=== PATIENT | male | born 1965 | race Caucasian/White ===

== ENCOUNTER 2018-11-27 02:28 | Emergency (ER) | payer SELFPAY ==
[~2018-11-27] VITALS: Ht 175.3 cm; Wt 59.0 kg
[2018-11-27 02:52] LABS: BASO # 0.1 x10^3/uL (0.0-0.2); BASO % 1 % (0-3); EOS # 0.4 x10^3/uL (0.0-0.7); EOS % 6 % (0-3); HEMATOCRIT 43.9 % (39.0-53.0); HEMOGLOBIN 14.9 g/dL (13.0-17.5); LYMPH # 1.8 x10^3/uL (1.0-4.8); LYMPH % 30 % (24-48); MEAN CORPUSCULAR HEMOGLOBIN 34 pg (25-35); MEAN CORPUSCULAR HGB CONC 34 g/dL (31-37); MEAN CORPUSCULAR VOLUME 102 fL (79-100); MONO # 0.7 x10^3/uL (0.0-1.1); MONO % 11 % (0-9); NEUT # 3.1 x10^3uL (1.8-7.7); NEUT % 52 % (31-73); PLATELET COUNT 186 x10^3/uL (140-400); RED BLOOD COUNT 4.33 x10^6/uL (4.30-5.70); RED CELL DISTRIBUTION WIDTH 15.3 % (11.5-14.5); WHITE BLOOD COUNT 6.1 x10^3/uL (4.0-11.0)
[2018-11-27] MEDS ORDERED: MULTIVIT INFUSN,ADULT 4,VIT K 10 ML, THIAMINE INJ 100 MG, FOLIC ACID INJ 1 MG in IV NOR... IV SCH (03:00)
[2018-11-27 03:10] LABS: BILIRUBIN,URINE SMALL (NEG); CLARITY,URINE CLOUDY; NITRITE,URINE NEGATIVE (NEG); PH,URINE 5.5; PROTEIN,URINE 100 mg/dL (NEG-TRACE)
[2018-11-27 03:16] LABS: AMPHETAMINE/METHAMPHETAMINE POS (NEG); BARBITURATES NEG (NEG); BENZODIAZEPINES POS (NEG); CANNABINOIDS NEG (NEG); COCAINE NEG (NEG); METHADONE NEG (NEG); OPIATES NEG (NEG); PHENCYCLIDINE NEG (NEG)
[2018-11-27 03:23] LABS: BACTERIA,URINE 0 /HPF (0-FEW); COLOR,URINE AMBER; RBC,URINE 0 /HPF (0-2); SQUAMOUS EPITHELIAL CELL,UR FEW /LPF
[2018-11-27 03:24] LABS: AMORPHOUS SEDIMENT,UR PRESENT /HPF; GRANULAR CASTS,URINE OCCASIONAL /HPF; HYALINE CASTS, URINE MANY /HPF
[2018-11-27 03:35] LABS: CALCIUM 8.4 mg/dL (8.5-10.1); CREATININE 0.7 mg/dL (0.7-1.3); GFR 117.1; POTASSIUM 3.1 mmol/L (3.5-5.1)
[2018-11-27 03:41] LABS: ALBUMIN 3.2 g/dL (3.4-5.0); ALBUMIN/GLOBULIN RATIO 0.8 (1.0-1.7); TOTAL BILIRUBIN 0.4 mg/dL (0.2-1.0)
[2018-11-27] MEDS ORDERED: POTASSIUM CHLORIDE 20 MEQ TABLET.ER. PO ONE (04:30)
[2018-11-27 05:00] VITALS: BP 125/62
--- NOTE | 2018-11-27 05:04 | PHYS DOC ---
Past Medical History Past Medical History: Hypertension, Hepatitis, Other Additional Past Medical Histor: OSTEOARTHRITIS, CHRONIC PAIN, HEP ENCEPHALOPATHY, TBI, HEP C Past Surgical History: Other Additional Past Surgical Histo: 'NECK AND BACK SURGERY' Alcohol Use: Heavy Drug Use: None Adult General Chief Complaint Chief Complaint: COLD EXPOSURE HPI HPI Patient is a 53-year-old male who presents with complaint of bilateral hand pain. Patient was brought in by EMS after he and been found outside sleeping on the grass. Patient had gotten intoxicated and was trying to walk back to his tent where he stays and states that he got tired and laid down and went to sleep. When he woke up his hands were hurting. Patient afraid that he may gotten frostbite in his hands. He denies any chest pain or shortness breath. Patient also states that he hurts pretty much everywhere. He admits to chronic pain. Review of Systems Review of Systems Constitutional: Denies fever or chills [] Respiratory: Denies cough or shortness of breath [] Cardiovascular: No additional information not addressed in HPI [] GI: Denies abdominal pain, nausea, vomiting or diarrhea [] Musculoskeletal: [place] of bilateral hand and diffuse joint pain [] Integument: Denies rash or skin lesions [] All other systems were reviewed and found to be within normal limits, except as documented in this note. Current Medications Current Medications Current Medications Medications (Trade) Dose Ordered Sig/Dawit Start Time Stop Time Status Last Admin Dose Admin Multivitamins 10 ml/Thiamine HCl 100 mg/Folic Acid 1 mg/Sodium Chloride 1,011.2 ml @ 1,000 mls/ hr Q1H 11/27/18 03:00 11/27/18 03:00 DC 11/27/18 02:55 1,000 MLS/HR Potassium Chloride (Klor-Con) 40 meq 1X ONCE 11/27/18 04:30 11/27/18 04:32 DC 11/27/18 04:18 40 MEQ Allergies Allergies Allergies Coded Allergies Type Severity Reaction Last Updated Verified Sulfa (Sulfonamide Antibiotics) Allergy Intermediate 11/27/18 Yes Physical Exam Physical Exam Constitutional: Well developed, well nourished, no acute distress, strong smell of alcohol is noted on patient's breath. [] HENT: Normocephalic, atraumatic, bilateral external ears normal, oropharynx moist, no oral exudates, nose normal. [] Eyes: PERRLA, EOMI, conjunctiva normal, no discharge. [] Neck: Normal range of motion, no tenderness, supple, no stridor. [] Cardiovascular: Regular rate and rhythm[] Lungs & Thorax: Bilateral breath sounds clear to auscultation [] Abdomen: Bowel sounds normal, soft, no tenderness. [] Skin: Warm, dry, no erythema, no rash. [] Back: No tenderness, no CVA tenderness. [] Extremities: No cyanosis, no clubbing, ROM intact, no edema. Good capillary refill is noted to all fingers [] Neurologic: Awake and alert, no focal deficits noted. [] Current Patient Data Vital Signs Vital Signs Date Time Temp Pulse Resp B/P (MAP) Pulse Ox O2 Delivery O2 Flow Rate FiO2 11/27/18 02:30 97.8 96 18 143/86 (105) 98 Room Air 97.8 Lab Values Laboratory Tests Test 11/27/18 02:44 11/27/18 03:00 White Blood Count 6.1 x10^3/uL (4.0-11.0) Red Blood Count 4.33 x10^6/uL (4.30-5.70) Hemoglobin 14.9 g/dL (13.0-17.5) Hematocrit 43.9 % (39.0-53.0) Mean Corpuscular Volume 102 fL (79-100) H Mean Corpuscular Hemoglobin 34 pg (25-35) Mean Corpuscular Hemoglobin Concent 34 g/dL (31-37) Red Cell Distribution Width 15.3 % (11.5-14.5) H Platelet Count 186 x10^3/uL (140-400) Neutrophils (%) (Auto) 52 % (31-73) Lymphocytes (%) (Auto) 30 % (24-48) Monocytes (%) (Auto) 11 % (0-9) H Eosinophils (%) (Auto) 6 % (0-3) H Basophils (%) (Auto) 1 % (0-3) Neutrophils # (Auto) 3.1 x10^3uL (1.8-7.7) Lymphocytes # (Auto) 1.8 x10^3/uL (1.0-4.8) Monocytes # (Auto) 0.7 x10^3/uL (0.0-1.1) Eosinophils # (Auto) 0.4 x10^3/uL (0.0-0.7) Basophils # (Auto) 0.1 x10^3/uL (0.0-0.2) Sodium Level 146 mmol/L (136-145) H Potassium Level 3.1 mmol/L (3.5-5.1) L Chloride Level 106 mmol/L (98-107) Carbon Dioxide Level 30 mmol/L (21-32) Anion Gap 10 (6-14) Blood Urea Nitrogen 13 mg/dL (8-26) Creatinine 0.7 mg/dL (0.7-1.3) Estimated GFR (Cockcroft-Gault) 117.1 BUN/Creatinine Ratio 19 (6-20) Glucose Level 132 mg/dL (70-99) H Calcium Level 8.4 mg/dL (8.5-10.1) L Magnesium Level 1.9 mg/dL (1.8-2.4) Total Bilirubin 0.4 mg/dL (0.2-1.0) Aspartate Amino Transferase (AST) 165 U/L (15-37) H Alanine Aminotransferase (ALT) 67 U/L (16-63) H Alkaline Phosphatase 105 U/L (46-116) Ammonia 32 mcmol/L (11-34) Total Protein 7.0 g/dL (6.4-8.2) Albumin 3.2 g/dL (3.4-5.0) L Albumin/Globulin Ratio 0.8 (1.0-1.7) L Ethyl Alcohol Level 281 mg/dL (0-10) H Urine Collection Type Unknown Urine Color [place] Urine Clarity Cloudy Urine pH 5.5 Urine Specific [place] >=1.030 Urine Protein 100 mg/dL (NEG-TRACE) Urine Glucose (UA) Negative mg/dL (NEG) Urine Ketones (Stick) Trace mg/dL (NEG) Urine Blood Negative (NEG) Urine Nitrite Negative (NEG) Urine Bilirubin Small (NEG) Urine Urobilinogen Dipstick 1.0 mg/dL (0.2 mg/dL) Urine Leukocyte Esterase Negative (NEG) Urine RBC 0 /HPF (0-2) Urine WBC 1-4 /HPF (0-4) Urine Squamous Epithelial Cells Few /LPF Urine Amorphous Sediment Present /HPF Urine Bacteria 0 /HPF (0-FEW) Urine Hyaline Casts Many /HPF Urine Granular Casts Occasional /HPF Urine Mucus Marked /LPF Urine Opiates Screen Neg (NEG) Urine Methadone Screen Neg (NEG) Urine Barbiturates Neg (NEG) Urine Phencyclidine Screen Neg (NEG) Urine Amphetamine/Methamphetamine Pos (NEG) Urine Benzodiazepines Screen Pos (NEG) Urine Cocaine Screen Neg (NEG) Urine Cannabinoids Screen Neg (NEG) Urine Ethyl Alcohol Pos (NEG) Laboratory Tests 11/27/18 02:44 Laboratory Tests 11/27/18 02:44 EKG EKG [] Radiology/Procedures Radiology/Procedures [] Course & Med Decision Making Course & Med Decision Making Pertinent Labs and Imaging studies reviewed. (See chart for details) [] Dragon Disclaimer Dragon Disclaimer This electronic medical record was generated, in whole or in part, using a voice recognition dictation system. Departure Departure Impression: Primary Impression: Acute alcohol intoxication Additional Impression: Frostnip Disposition: 01 HOME, SELF-CARE Condition: STABLE Referrals: NO PCP (PCP) Patient Instructions: Alcohol Intoxication, Frostbite, [id number] Problem Qualifiers Primary Impression: Acute alcohol intoxication Complication of substance-induced condition: uncomplicated Qualified Codes: F10.920 - Alcohol use, unspecified with intoxication, uncomplicated Additional Impression: Frostnip Encounter type: initial encounter Qualified Codes: T33.90XA - Superficial frostbite of unspecified sites, initial encounter CHINMAY DANIEL Jr., DO Nov 27, 2018 05:04
== END 2018-11-27 06:09 | disposition home or self-care (01) ==
LOC: ER 02:28
DX: T33.522A Superficial frostbite of left hand, initial encounter (principal); T33.521A Superficial frostbite of right hand, initial encounter; T69.9XXA Effect of reduced temperature, unspecified, initial encounter; F10.229 Alcohol dependence with intoxication, unspecified; Y90.8 Blood alcohol level of 240 mg/100 ml or more; M19.90 Unspecified osteoarthritis, unspecified site; G89.29 Other chronic pain; I10 Essential (primary) hypertension; Z88.2 Allergy status to sulfonamides; X31.XXXA Exposure to excessive natural cold, initial encounter; Y93.89 Activity, other specified; Y92.89 Other specified places as the place of occurrence of the external cause; Y99.8 Other external cause status
CPT/HCPCS: 36415; 80053; 80307; 81001; 82140; 83735; 85025; 96365; 99284; G0480; J7030

== ENCOUNTER 2018-12-16 00:41 | Inpatient (IN) | payer MEDICAID ==
[~2018-12-16] VITALS: Ht 175.3 cm; Wt 72.7 kg
[2018-12-16 01:20] LABS: BILIRUBIN,URINE NEGATIVE (NEG); CLARITY,URINE CLEAR; COLOR,URINE YELLOW; NITRITE,URINE NEGATIVE (NEG); PH,URINE 7.5; PROTEIN,URINE NEGATIVE (NEG-TRACE)
[2018-12-16 01:21] LABS: BASO # 0.1 x10^3/uL (0.0-0.2); BASO % 1 % (0-3); EOS # 0.2 x10^3/uL (0.0-0.7); EOS % 3 % (0-3); HEMATOCRIT 42.2 % (39.0-53.0); HEMOGLOBIN 14.4 g/dL (13.0-17.5); LYMPH # 1.5 x10^3/uL (1.0-4.8); LYMPH % 19 % (24-48); MEAN CORPUSCULAR HEMOGLOBIN 35 pg (25-35); MEAN CORPUSCULAR HGB CONC 34 g/dL (31-37); MEAN CORPUSCULAR VOLUME 101 fL (79-100); MONO # 0.6 x10^3/uL (0.0-1.1); MONO % 8 % (0-9); NEUT # 5.9 x10^3uL (1.8-7.7); NEUT % 70 % (31-73); PLATELET COUNT 149 x10^3/uL (140-400); RED BLOOD COUNT 4.16 x10^6/uL (4.30-5.70); RED CELL DISTRIBUTION WIDTH 13.7 % (11.5-14.5); WHITE BLOOD COUNT 8.4 x10^3/uL (4.0-11.0)
[2018-12-16] MEDS ORDERED: IV NORMAL SALINE 1000ML BAG 1,000 ML IV ONE (01:30)
[2018-12-16 01:34] LABS: CALCIUM 8.8 mg/dL (8.5-10.1); CREATININE 0.4 mg/dL (0.7-1.3); GFR 223.3; POTASSIUM 3.1 mmol/L (3.5-5.1)
[2018-12-16 01:36] LABS: BARBITURATES NEG (NEG); BENZODIAZEPINES NEG (NEG); CANNABINOIDS NEG (NEG); COCAINE NEG (NEG); METHADONE NEG (NEG); OPIATES NEG (NEG); PHENCYCLIDINE NEG (NEG)
--- NOTE | 2018-12-16 01:37 | PHYS DOC ---
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 Pt states he also had "a really bad TBI" that causes him to "fall all the time." PT states that he fell 2 days ago in a garage and couldn't get up for 2 days. He then decided to "call for help" because he is "going to if I keep up this drinking." Pt states drinking well over a 5th a day and that he experiences delirium tremens if he goes longer than an hour without drinking. Pt is a poor historian and unable to relay much reliable information. Pt was visibly anxious and worried. Review of Systems Review of Systems Constitutional: Denies fever or chills [] Eyes: Denies change in visual acuity, redness, or eye pain [] HENT: Denies nasal congestion or sore throat [] Respiratory: Denies cough or shortness of breath [] Cardiovascular: No additional information not addressed in HPI [] Integument: Neurologic: All other systems were reviewed and found to be within normal limits, except as documented in this note. Current Medications Current Medications Current Medications Medications (Trade) Dose Ordered Sig/Dawit Start Time Stop Time Status Last Admin Dose Admin Diphenhydramine HCl (Benadryl) 50 mg 1X ONCE 12/16/18 02:30 12/16/18 02:31 DC 12/16/18 03:06 50 MG Lorazepam (Ativan) 1 mg 1X ONCE 12/16/18 01:30 12/16/18 01:31 DC 12/16/18 01:24 1 MG Magnesium Sulfate/ Dextrose 100 ml @ 100 mls/hr 1X ONCE 12/16/18 02:30 12/16/18 03:29 DC 12/16/18 03:06 100 MLS/HR Potassium Chloride (KCl Oral Soln) 40 meq 1X ONCE 12/16/18 02:30 12/16/18 02:31 DC 12/16/18 03:05 40 MEQ Sodium Chloride 1,000 ml @ 1,000 mls/hr 1X ONCE 12/16/18 01:30 12/16/18 02:29 DC 12/16/18 01:24 1,000 MLS/HR Allergies Allergies Allergies Coded Allergies Type Severity Reaction Last Updated Verified Sulfa (Sulfonamide Antibiotics) Allergy Intermediate 11/27/18 Yes Physical Exam Physical Exam Constitutional: acute distress, toxic appearance. HENT: Normocephalic, atraumatic, bilateral external ears normal, oropharynx moist, no oral exudates, nose normal. Eyes: Pt would not keep eyes open to perform the exam. Throughout the interview and when not trying to examine his eyes he is able to keep them open. Cardiovascular:Heart rate tachycardic, regular rhythm, no murmur Lungs & Thorax: Bilateral breath sounds clear to auscultation Abdomen: Bowel sounds normal, soft, no tenderness, no masses, no pulsatile masses. Extremities: No tenderness, no cyanosis, no clubbing, ROM intact, no edema. Neurologic: Alert and oriented X 3 Psychologic: judgement impaired, paranoid mood, denies SI/HI/AVH. Current Patient Data Vital Signs Vital Signs Date Time Temp Pulse Resp B/P (MAP) Pulse Ox O2 Delivery O2 Flow Rate FiO2 12/16/18 02:27 97 26 163/92 (115) 98 Room Air 12/16/18 00:50 98.9 98.9 Lab Values Laboratory Tests Test 12/16/18 00:55 12/16/18 01:02 Urine Collection Type Unknown Urine Color Yellow Urine Clarity Clear Urine pH 7.5 Urine Specific [place] <=1.005 Urine Protein Negative mg/dL (NEG-TRACE) Urine Glucose (UA) Negative mg/dL (NEG) Urine Ketones (Stick) Negative mg/dL (NEG) Urine Blood Negative (NEG) Urine Nitrite Negative (NEG) Urine Bilirubin Negative (NEG) Urine Urobilinogen Dipstick 2.0 mg/dL (0.2 mg/dL) Urine Leukocyte Esterase Negative (NEG) Urine RBC Occ /HPF (0-2) Urine WBC Occ /HPF (0-4) Urine Squamous Epithelial Cells Occ /LPF Urine Bacteria 0 /HPF (0-FEW) Urine Opiates Screen Neg (NEG) Urine Methadone Screen Neg (NEG) Urine Barbiturates Neg (NEG) Urine Phencyclidine Screen Neg (NEG) Urine Amphetamine/Methamphetamine Neg (NEG) Urine Benzodiazepines Screen Neg (NEG) Urine Cocaine Screen Neg (NEG) Urine Cannabinoids Screen Neg (NEG) Urine Ethyl Alcohol Pos (NEG) White Blood Count 8.4 x10^3/uL (4.0-11.0) Red Blood Count 4.16 x10^6/uL (4.30-5.70) L Hemoglobin 14.4 g/dL (13.0-17.5) Hematocrit 42.2 % (39.0-53.0) Mean Corpuscular Volume 101 fL (79-100) H Mean Corpuscular Hemoglobin 35 pg (25-35) Mean Corpuscular Hemoglobin Concent 34 g/dL (31-37) Red Cell Distribution Width 13.7 % (11.5-14.5) Platelet Count 149 x10^3/uL (140-400) Neutrophils (%) (Auto) 70 % (31-73) Lymphocytes (%) (Auto) 19 % (24-48) L Monocytes (%) (Auto) 8 % (0-9) Eosinophils (%) (Auto) 3 % (0-3) Basophils (%) (Auto) 1 % (0-3) Neutrophils # (Auto) 5.9 x10^3uL (1.8-7.7) Lymphocytes # (Auto) 1.5 x10^3/uL (1.0-4.8) Monocytes # (Auto) 0.6 x10^3/uL (0.0-1.1) Eosinophils # (Auto) 0.2 x10^3/uL (0.0-0.7) Basophils # (Auto) 0.1 x10^3/uL (0.0-0.2) Prothrombin Time 13.0 SEC (11.7-14.0) Prothrombin Time INR 1.0 (0.8-1.1) Sodium Level 143 mmol/L (136-145) Potassium Level 3.1 mmol/L (3.5-5.1) L Chloride Level 103 mmol/L (98-107) Carbon Dioxide Level 30 mmol/L (21-32) Anion Gap 10 (6-14) Blood Urea Nitrogen 11 mg/dL (8-26) Creatinine 0.4 mg/dL (0.7-1.3) L Estimated GFR (Cockcroft-Gault) 223.3 BUN/Creatinine Ratio 28 (6-20) H Glucose Level 93 mg/dL (70-99) Calcium Level 8.8 mg/dL (8.5-10.1) Magnesium Level 1.6 mg/dL (1.8-2.4) L Total Bilirubin 0.9 mg/dL (0.2-1.0) Aspartate Amino Transferase (AST) 228 U/L (15-37) H Alanine Aminotransferase (ALT) 135 U/L (16-63) H Alkaline Phosphatase 118 U/L (46-116) H Total Protein 7.2 g/dL (6.4-8.2) Albumin 3.2 g/dL (3.4-5.0) L Albumin/Globulin Ratio 0.8 (1.0-1.7) L Lipase 155 U/L (73-393) Ethyl Alcohol Level 146 mg/dL (0-10) H Laboratory Tests 12/16/18 01:02 Laboratory Tests 12/16/18 01:02 EKG EKG [] Interpretation Time: Normal sinus rhythm rate of 96 QTC 435 no STEMI interpreted by me time of encounter Radiology/Procedures Radiology/Procedures [INDICATION: etoh intoxication; eval for sdh; found down COMPARISON: None. TECHNIQUE: Axial CT images obtained through the head without intravenous contrast. One or more of the following individualized dose reduction techniques were utilized for this examination: 1. Automated exposure control; 2. Adjustment of the mA and/or kV according to patient size; 3. Use of iterative reconstruction technique. FINDINGS: No intracranial hemorrhage. No midline shift. Basal cisterns patent. Ventricles and sulci are unremarkable. No acute osseous abnormality. Nasal septal deviation to left. High density foci posterior aspect of the globe bilaterally. Could be calcification or postoperative. IMPRESSION: 1. No definite acute intracranial hemorrhage. 2. Scattered foci low density of white matter. Nonspecific but can be seen with chronic small vessel ischemic disease. 3. Deformity of the left mandibular condyle. Suspect that this is a chronic finding but would correlate with symptoms within the region. Electronically signed by: Marcelo Steele MD (12/16/2018 3:49 AM) [id number]] Course & Med Decision Making Course & Med Decision Making Pt is a 53 yo male with a history of heavy alcoholism, hep c, osteoarthritis, HTN, extended time spent in penitentiary, and possible homelessness. Pint of alcohol half drank was on his person. 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 He states he gets DT's if he doesn't drink for 1-2 hours but pt did not seem to be in DT. Probable psychiatric component that has not been worked up or treated by a psychiatrist. Fortunately he does seem to have a genuine want to quit drinking and says he would like to go somewhere for detox. Workup CBC, CMP, ethanol level/uds, LFT's, alk phos, lipase IV fluids, Lorazepam (gave benadryl for some itching following ativan) admit to service of dr ferrer per usual local protocol Patient given elevated ciwa protocol, did have some tremor noted also did have a pill-rolling tremor as well of unclear etiology at this time. Lab work did show some electrolyte abnormalities alcohol level of 146 AST and ALT were elevated. Likely the INR was within normal limits patient is homeless he says he needs a walker to get around he cannot walk well he says there is no way he can be discharged to his own care at this time. In addition he does have some stigmata of early alcohol withdrawal so he was admitted for Ciwa protocol and social services evaluation. Dragon Disclaimer Dragon Disclaimer This electronic medical record was generated, in whole or in part, using a voice recognition dictation system. Departure Departure Impression: Primary Impression: Alcohol withdrawal Disposition: ADMITTED INPATIENT Admitting Physician: Other Condition: STABLE Referrals: NO PCP (PCP) MUKESH GRIFFITH MD Dec 16, 2018 01:37
[2018-12-16 01:40] LABS: ALBUMIN 3.2 g/dL (3.4-5.0); ALBUMIN/GLOBULIN RATIO 0.8 (1.0-1.7); MAGNESIUM 1.6 mg/dL (1.8-2.4); TOTAL BILIRUBIN 0.9 mg/dL (0.2-1.0); TOTAL PROTEIN 7.2 g/dL (6.4-8.2)
[2018-12-16 01:42] LABS: AMPHETAMINE/METHAMPHETAMINE NEG (NEG)
[2018-12-16 02:02] LABS: BACTERIA,URINE 0 /HPF (0-FEW); RBC,URINE OCC /HPF (0-2); SQUAMOUS EPITHELIAL CELL,UR OCC /LPF; WBC,URINE OCC /HPF (0-4)
[2018-12-16] MEDS ORDERED: diphenhydrAMINE HCL 25 MG CAPSULE PO ONE (02:30)
[2018-12-16] MEDS ORDERED: POTASSIUM CHLORIDE 20 MEQ/15 ML ORAL LIQUID. PO ONE (02:30)
[2018-12-16] MEDS ORDERED: MAGNESIUM SULFATE 1GM 100 ML IV ONE (02:30)
[2018-12-16] MEDS ORDERED: diphenhydrAMINE 50 MG/ML VIAL IVP PRN (02:45)
[2018-12-16] MEDS ORDERED: MULTIVIT INFUSN,ADULT 4,VIT K 10 ML, THIAMINE INJ 100 MG, FOLIC ACID INJ 1 MG in IV NOR... IV ONE (03:00)
--- NOTE | 2018-12-16 03:52 | RAD ---
INDICATION: etoh intoxication; eval for sdh; found down COMPARISON: None. TECHNIQUE: Axial CT images obtained through the head without intravenous contrast. One or more of the following individualized dose reduction techniques were utilized for this examination: 1. Automated exposure control; 2. Adjustment of the mA and/or kV according to patient size; 3. Use of iterative reconstruction technique. FINDINGS: No intracranial hemorrhage. No midline shift. Basal cisterns patent. Ventricles and sulci are unremarkable. No acute osseous abnormality. Nasal septal deviation to left. High density foci posterior aspect of the globe bilaterally. Could be calcification or postoperative. IMPRESSION: 1. No definite acute intracranial hemorrhage. 2. Scattered foci low density of white matter. Nonspecific but can be seen with chronic small vessel ischemic disease. 3. Deformity of the left mandibular condyle. Suspect that this is a chronic finding but would correlate with symptoms within the region. Electronically signed by: Marcelo Steele MD (12/16/2018 3:49 AM) [id number]
[2018-12-16] MEDS ORDERED: traMADol 50 MG TABLET PO ONE (04:00)
[2018-12-16 04:20] VITALS: BP 138/89
--- NOTE | 2018-12-16 05:11 | NUR ---
Pt.arrived via bed from ED w/ alcohol withdrawal. He is A/O x4 and will make needs known. Very anxious
--- NOTE | 2018-12-16 06:00 | EKG ---
[facility] [address] [place] [address] Test Date: 2018-12-16 Test Time: 01:23:01 Pat Name: CRYSTAL SEVILLA Department: Room: [facility] Gender: M Ski Topper: : 1965 Requested By: MUKESH GRIFFITH Order Number: [id number] Reading MD: David Hansen MD Measurements Intervals [place] Rate: 96 P: -132 NM: 102 QRS: 51 QRSD: 78 T: 52 QT: 344 QTc: 435 Interpretive Statements SR NON-SPECIFIC ST/T CHANGES Electronically Signed On 12-18-2018 16:16:16 CDT by David Hansen MD
--- NOTE | 2018-12-16 06:23 | NUR ---
Pt. refuses to wear heart monitor and keeps taking it off. I put th ebed alarm on and he unplugs the bed to prevent the alarm from going off.
[2018-12-16 07:00] VITALS: BP 135/83
--- NOTE | 2018-12-16 07:35 | RAD ---
PROCEDURE: PORTABLE CHEST 1V CLINICAL INDICATION: etoh withdrawal COMPARISON: None FINDINGS: No pneumothorax identified. Cardiac and mediastinal contours unremarkable. No pulmonary consolidation or acute airspace disease. No acute osseous abnormalities identified. IMPRESSION: No pulmonary consolidation or acute airspace disease. Electronically signed by: Lion Cutler DO (12/16/2018 7:31 AM) [facility]
--- NOTE | 2018-12-16 08:17 | PDOC1 ---
History and Physical Date of Admission Date of Admission DATE: 12/16/18 TIME: 08:16 Identification/Chief Complaint Chief Complaint Confusion Source Source: Chart review, Patient History of Present Illness History of Present Illness Patient is a 53 year old male with a history of heavy alcoholism, HTN, hepatitis C (stage 4 fibrosis per pt) who presented to the ED because he "needs help". Pt states he also had "a really bad TBI" that causes him to "fall all the time." PT states that he fell 2 days ago in a garage and couldn't get up for 2 days. He then decided to "call for help" because he is "going to if I keep up this drinking." Pt states drinking well over a 5th a day and that he experiences delirium tremens if he goes longer than an hour without drinking. Pt is a poor historian and unable to relay much reliable information. Pt was visibly anxious and worried. He states to me today that he does not want to stop drinking. He is combative, confused. Requiring 4mg IV ativan hourly with no great effect. Past Medical History Cardiovascular: HTN Pulmonary: No pertinent hx GI: Gastritis Heme/Onc: Anemia NOS Hepatobiliary: Cirrhosis, Hep A/B/C Psych: No pertinent hx Rheumatologic: No pertinent hx Infectious disease: No pertinent hx ENT: No pertinent hx Renal/: No pertinent hx Endocrine: No pertinent hx Dermatology: No pertinent hx Past Surgical History Past Surgical History: No pertinent history Family History Family History: Family History Unknown Social History Smoke: <1 pack per day ALCOHOL: heavy Drugs: None Current Medications Current Medications Current Medications Sodium Chloride 1,000 ml @ 1,000 mls/hr 1X ONCE IV Last administered on at 01:24; Start 12/16/18 at 01:30; Stop 12/16/18 at 02:29; Status DC Lorazepam (Ativan) 1 mg 1X ONCE IV Last administered on 12/16/18at 01:24; Start 12/16/18 at 01:30; Stop 12/16/18 at 01:31; Status DC Potassium Chloride (KCl Oral Soln) 40 meq 1X ONCE PO Last administered on 12/16at 03:05; Start 12/16/18 at 02:30; Stop 12/16/18 at 02:31; Status DC Diphenhydramine HCl (Benadryl) 50 mg 1X ONCE PO Last administered on at 03:06; Start 12/16/18 at 02:30; Stop 12/16/18 at 02:31; Status DC Magnesium Sulfate/ Dextrose 100 ml @ 100 mls/hr 1X ONCE IV Last administered on 12/16/18at 03:06; Start 12/16/18 at 02:30; Stop 12/16/18 at 03:29; Status DC Multivitamins 10 ml/Thiamine HCl 100 mg/Folic Acid 1 mg/Sodium Chloride 1,011.2 ml @ 1,000.088 mls/hr 1X ONCE IV Last administered on 12/16/18at 03:05; Start 12/16/18 at 03:00; Stop 12/16/18 at 04:00; Status DC Multivitamins (Thera M Plus) 1 tab DAILY PO ; Start 12/16/18 at 09:00 Folic Acid (Folic Acid) 1 mg DAILY PO ; Start 12/16/18 at 09:00 Thiamine Mononitrate (Vitamin B-1) 100 mg DAILY PO ; Start 12/16/18 at 09:00 Lorazepam (Ativan) 2 mg PRN Q1HR PRN IV For CIWA 8-14 Last administered on 12/16at 03:05; Start 12/16/18 at 02:45 Lorazepam (Ativan) 4 mg PRN Q1HR PRN IV For CIWA 15 or greater Last administered on 12/16/18at 07:37; Start 12/16/18 at 02:45 Diphenhydramine HCl (Benadryl) 25 mg PRN Q4HRS PRN IVP ITCHING Last administered on 12/16/18at 07:38; Start 12/16/18 at 02:45 Tramadol HCl (Ultram) 50 mg 1X ONCE PO Last administered on 12/16/18at 03:50; Start 12/16/18 at 04:00; Stop 12/16/18 at 04:01; Status DC Allergies Allergies: Coded Allergies: Sulfa (Sulfonamide Antibiotics) (Verified Allergy, Intermediate, 11/27/18) lorazepam (Verified Allergy, Intermediate, hives, 12/16/18) patient itches OK IF GIVEN WITH BENADRYL ROS Review of System Unable to complete due to alcohol intoxication and confusion Physical Exam General: mild distress, Other (Combative, confused) HEENT: Atraumatic, PERRLA, EOMI, Mucous membr. moist/pink Lungs: Clear to auscultation, Normal air movement Heart: S1S2, RRR Rectal Exam: not examined Extremities: No clubbing, No cyanosis, No edema, Normal pulses, No tenderness/ swelling Skin: No rashes, No breakdown, No significant lesion Neuro: Sensation intact, Cranial nerves 3-12 NL, Reflexes 2+ Vitals Vitals Vital Signs Date Time Temp Pulse Resp B/P (MAP) Pulse Ox O2 Delivery O2 Flow Rate FiO2 12/16/18 05:08 96 12/16/18 04:30 Room Air 12/16/18 04:20 97.9 87 18 138/89 (105) 97.9 Labs Labs Laboratory Tests Test 12/16/18 00:55 12/16/18 01:02 Urine Collection Type Unknown Urine Color Yellow Urine Clarity Clear Urine pH 7.5 Urine Specific [place] <=1.005 Urine Protein Negative mg/dL (NEG-TRACE) Urine Glucose (UA) Negative mg/dL (NEG) Urine Ketones (Stick) Negative mg/dL (NEG) Urine Blood Negative (NEG) Urine Nitrite Negative (NEG) Urine Bilirubin Negative (NEG) Urine Urobilinogen Dipstick 2.0 mg/dL (0.2 mg/dL) Urine Leukocyte Esterase Negative (NEG) Urine RBC Occ /HPF (0-2) Urine WBC Occ /HPF (0-4) Urine Squamous Epithelial Cells Occ /LPF Urine Bacteria 0 /HPF (0-FEW) Urine Opiates Screen Neg (NEG) Urine Methadone Screen Neg (NEG) Urine Barbiturates Neg (NEG) Urine Phencyclidine Screen Neg (NEG) Urine Amphetamine/Methamphetamine Neg (NEG) Urine Benzodiazepines Screen Neg (NEG) Urine Cocaine Screen Neg (NEG) Urine Cannabinoids Screen Neg (NEG) Urine Ethyl Alcohol Pos (NEG) White Blood Count 8.4 x10^3/uL (4.0-11.0) Red Blood Count 4.16 x10^6/uL (4.30-5.70) Hemoglobin 14.4 g/dL (13.0-17.5) Hematocrit 42.2 % (39.0-53.0) Mean Corpuscular Volume 101 fL (79-100) Mean Corpuscular Hemoglobin 35 pg (25-35) Mean Corpuscular Hemoglobin Concent 34 g/dL (31-37) Red Cell Distribution Width 13.7 % (11.5-14.5) Platelet Count 149 x10^3/uL (140-400) Neutrophils (%) (Auto) 70 % (31-73) Lymphocytes (%) (Auto) 19 % (24-48) Monocytes (%) (Auto) 8 % (0-9) Eosinophils (%) (Auto) 3 % (0-3) Basophils (%) (Auto) 1 % (0-3) Neutrophils # (Auto) 5.9 x10^3uL (1.8-7.7) Lymphocytes # (Auto) 1.5 x10^3/uL (1.0-4.8) Monocytes # (Auto) 0.6 x10^3/uL (0.0-1.1) Eosinophils # (Auto) 0.2 x10^3/uL (0.0-0.7) Basophils # (Auto) 0.1 x10^3/uL (0.0-0.2) Prothrombin Time 13.0 SEC (11.7-14.0) Prothromb Time International Ratio 1.0 (0.8-1.1) Sodium Level 143 mmol/L (136-145) Potassium Level 3.1 mmol/L (3.5-5.1) Chloride Level 103 mmol/L (98-107) Carbon Dioxide Level 30 mmol/L (21-32) Anion Gap 10 (6-14) Blood Urea Nitrogen 11 mg/dL (8-26) Creatinine 0.4 mg/dL (0.7-1.3) Estimated GFR (Cockcroft-Gault) 223.3 BUN/Creatinine Ratio 28 (6-20) Glucose Level 93 mg/dL (70-99) Calcium Level 8.8 mg/dL (8.5-10.1) Magnesium Level 1.6 mg/dL (1.8-2.4) Total Bilirubin 0.9 mg/dL (0.2-1.0) Aspartate Amino Transf (AST/SGOT) 228 U/L (15-37) Alanine Aminotransferase (ALT/SGPT) 135 U/L (16-63) Alkaline Phosphatase 118 U/L (46-116) Total Protein 7.2 g/dL (6.4-8.2) Albumin 3.2 g/dL (3.4-5.0) Albumin/Globulin Ratio 0.8 (1.0-1.7) Lipase 155 U/L (73-393) Ethyl Alcohol Level 146 mg/dL (0-10) Laboratory Tests Test 12/16/18 00:55 12/16/18 01:02 Urine Collection Type Unknown Urine Color Yellow Urine Clarity Clear Urine pH 7.5 Urine Specific [place] <=1.005 Urine Protein Negative mg/dL (NEG-TRACE) Urine Glucose (UA) Negative mg/dL (NEG) Urine Ketones (Stick) Negative mg/dL (NEG) Urine Blood Negative (NEG) Urine Nitrite Negative (NEG) Urine Bilirubin Negative (NEG) Urine Urobilinogen Dipstick 2.0 mg/dL (0.2 mg/dL) Urine Leukocyte Esterase Negative (NEG) Urine RBC Occ /HPF (0-2) Urine WBC Occ /HPF (0-4) Urine Squamous Epithelial Cells Occ /LPF Urine Bacteria 0 /HPF (0-FEW) Urine Opiates Screen Neg (NEG) Urine Methadone Screen Neg (NEG) Urine Barbiturates Neg (NEG) Urine Phencyclidine Screen Neg (NEG) Urine Amphetamine/Methamphetamine Neg (NEG) Urine Benzodiazepines Screen Neg (NEG) Urine Cocaine Screen Neg (NEG) Urine Cannabinoids Screen Neg (NEG) Urine Ethyl Alcohol Pos (NEG) White Blood Count 8.4 x10^3/uL (4.0-11.0) Red Blood Count 4.16 x10^6/uL (4.30-5.70) Hemoglobin 14.4 g/dL (13.0-17.5) Hematocrit 42.2 % (39.0-53.0) Mean Corpuscular Volume 101 fL (79-100) Mean Corpuscular Hemoglobin 35 pg (25-35) Mean Corpuscular Hemoglobin Concent 34 g/dL (31-37) Red Cell Distribution Width 13.7 % (11.5-14.5) Platelet Count 149 x10^3/uL (140-400) Neutrophils (%) (Auto) 70 % (31-73) Lymphocytes (%) (Auto) 19 % (24-48) Monocytes (%) (Auto) 8 % (0-9) Eosinophils (%) (Auto) 3 % (0-3) Basophils (%) (Auto) 1 % (0-3) Neutrophils # (Auto) 5.9 x10^3uL (1.8-7.7) Lymphocytes # (Auto) 1.5 x10^3/uL (1.0-4.8) Monocytes # (Auto) 0.6 x10^3/uL (0.0-1.1) Eosinophils # (Auto) 0.2 x10^3/uL (0.0-0.7) Basophils # (Auto) 0.1 x10^3/uL (0.0-0.2) Prothrombin Time 13.0 SEC (11.7-14.0) Prothromb Time International Ratio 1.0 (0.8-1.1) Sodium Level 143 mmol/L (136-145) Potassium Level 3.1 mmol/L (3.5-5.1) Chloride Level 103 mmol/L (98-107) Carbon Dioxide Level 30 mmol/L (21-32) Anion Gap 10 (6-14) Blood Urea Nitrogen 11 mg/dL (8-26) Creatinine 0.4 mg/dL (0.7-1.3) Estimated GFR (Cockcroft-Gault) 223.3 BUN/Creatinine Ratio 28 (6-20) Glucose Level 93 mg/dL (70-99) Calcium Level 8.8 mg/dL (8.5-10.1) Magnesium Level 1.6 mg/dL (1.8-2.4) Total Bilirubin 0.9 mg/dL (0.2-1.0) Aspartate Amino Transf (AST/SGOT) 228 U/L (15-37) Alanine Aminotransferase (ALT/SGPT) 135 U/L (16-63) Alkaline Phosphatase 118 U/L (46-116) Total Protein 7.2 g/dL (6.4-8.2) Albumin 3.2 g/dL (3.4-5.0) Albumin/Globulin Ratio 0.8 (1.0-1.7) Lipase 155 U/L (73-393) Ethyl Alcohol Level 146 mg/dL (0-10) Images Images CT head - No intracranial hemorrhage. No midline shift. Basal cisterns patent. Ventricles and sulci are unremarkable. No acute osseous abnormality. Nasal septal deviation to left. High density foci posterior aspect of the globe bilaterally. Could be calcification or postoperative. IMPRESSION: 1. No definite acute intracranial hemorrhage. 2. Scattered foci low density of white matter. Nonspecific but can be seen with chronic small vessel ischemic disease. 3. Deformity of the left mandibular condyle. Suspect that this is a chronic finding but would correlate with symptoms within the region. VTE Prophylaxis Ordered VTE Prophylaxis Devices: Yes VTE Pharmacological Prophylaxi: No Assessment/Plan Assessment/Plan A/P: Heavy alcohol abuse - unclear if he actually wants to quit, was already in withdrawal with ETOH level in 100s. Banana bag, YONATHAN, may need ICU transfer if he cannot be controlled and may need to give him ethanol as well HTN - cont home meds Hepatitis C - states he has severe fibrosis with likely cirrhosis. Will give lactulose for BMs Hypokalemia - 3.1, replace IV x2 and PO Hypomagnesemia - 4g to replace RIFFEL,ZITA Cruz MD Dec 16, 2018 08:17
--- NOTE | 2018-12-16 08:51 | NUR ---
SW following pt for anticipated dc needs. Chart reveiwed and discussed with RN. Pt is self-pay, homeless and currently detoxing. Pt not appropriate for PAT team eval at this time. Will continue to follow.
[2018-12-16] MEDS: MULTIVITAMIN with MINERAL TABLET. PO SCH (09:40)
[2018-12-16] MEDS: FOLIC ACID 1 MG TABLET. PO SCH (09:40)
[2018-12-16] MEDS: THIAMINE 100 MG TABLET. PO SCH (09:40)
[2018-12-16] MEDS: diphenhydrAMINE 50 MG/ML VIAL IVP PRN ×2 (10:42→14:40)
[2018-12-16] MEDS: HALOPERIDOL LACTATE 5 MG/ML VIAL. IVP PRN ×2 (11:49→17:34)
[2018-12-16] MEDS: POTASSIUM CL 40MEQ D5-0.45NACL 1,000 ML IV SCH ×2 (12:09→20:56)
[2018-12-16 19:00] VITALS: BP 102/63
[2018-12-16 22:54] VITALS: BP 95/48
[2018-12-17 03:00] VITALS: BP 117/66
[2018-12-17 07:00] VITALS: BP 117/70
[2018-12-17 07:06] LABS: ALBUMIN 2.6 g/dL (3.4-5.0); ALBUMIN/GLOBULIN RATIO 0.7 (1.0-1.7); CALCIUM 8.2 mg/dL (8.5-10.1); CREATININE 0.4 mg/dL (0.7-1.3); GFR 223.3; MAGNESIUM 1.7 mg/dL (1.8-2.4); TOTAL BILIRUBIN 0.9 mg/dL (0.2-1.0); TOTAL PROTEIN 6.1 g/dL (6.4-8.2)
[2018-12-17] MEDS: FOLIC ACID 1 MG TABLET. PO SCH (08:38)
[2018-12-17] MEDS: THIAMINE 100 MG TABLET. PO SCH (08:38)
[2018-12-17] MEDS: MULTIVITAMIN with MINERAL TABLET. PO SCH (08:38)
--- NOTE | 2018-12-17 10:14 | PDOC ---
PROGRESS NOTES Chief Complaint Chief Complaint Heavy alcohol abuse Tremors, alcohol withdrawal s/p banana bag HTN Hepatitis C - states he has severe fibrosis with likely cirrhosis Hypokalemia Hypomagnesemia - 4g to replace History of Present Illness History of Present Illness Mr. Rosario presented with tremors, confusion, found to have alcohol level > 100. Patient has long history of alcohol abuse. Patient seen and examined at bedside. Continues to have tremors. Discussed case with RN. Current CIWA of 4. Vitals Vitals Vital Signs Date Time Temp Pulse Resp B/P (MAP) Pulse Ox O2 Delivery O2 Flow Rate FiO2 12/17/18 08:00 Room Air 12/17/18 07:00 98.0 76 18 117/70 (86) 90 98.0 Physical Exam General: Alert, mild distress, Other (oriented x 2) Heart: Regular rate, No murmurs Lungs: Clear Abdomen: Normal bowel sounds, Soft, No tenderness, No masses Extremities: No clubbing, No cyanosis, No edema, Normal pulses, No tenderness/ swelling, Other (bilateral tremors) Skin: No rashes, No breakdown, No significant lesion Labs LABS Laboratory Tests Test 12/17/18 05:15 Sodium Level 143 mmol/L (136-145) Potassium Level 3.0 mmol/L (3.5-5.1) Chloride Level 105 mmol/L (98-107) Carbon Dioxide Level 30 mmol/L (21-32) Anion Gap 8 (6-14) Blood Urea Nitrogen 5 mg/dL (8-26) Creatinine 0.4 mg/dL (0.7-1.3) Estimated GFR (Cockcroft-Gault) 223.3 BUN/Creatinine Ratio 13 (6-20) Glucose Level 104 mg/dL (70-99) Calcium Level 8.2 mg/dL (8.5-10.1) Magnesium Level 1.7 mg/dL (1.8-2.4) Total Bilirubin 0.9 mg/dL (0.2-1.0) Aspartate Amino Transf (AST/SGOT) 150 U/L (15-37) Alanine Aminotransferase (ALT/SGPT) 105 U/L (16-63) Alkaline Phosphatase 83 U/L (46-116) Total Protein 6.1 g/dL (6.4-8.2) Albumin 2.6 g/dL (3.4-5.0) Albumin/Globulin Ratio 0.7 (1.0-1.7) Review of Systems Review of Systems Reports tremors Reports confusion Denies chest pain Denies shortness of breath Assessment and Plan Assessmemt and Plan Assessment: Heavy alcohol abuse Tremors, alcohol withdrawal s/p banana bag HTN Hepatitis C - states he has severe fibrosis with likely cirrhosis Hypokalemia Hypomagnesemia - 4g to replace Plan: Continue to follow alcohol withdrawal protocol, current CIWA of 4. Monitor vitals Review labs in the am Haloperidol for agitation as needed Discuss alcohol cessation Comment Review of Relevant I have reviewed the following items tamika (where applicable) has been applied. Labs Laboratory Tests Test 12/16/18 00:55 12/16/18 01:02 12/16/18 06:34 12/17/18 05:15 Urine Collection Type Unknown Urine Color Yellow Urine Clarity Clear Urine pH 7.5 Urine Specific [place] <=1.005 Urine Protein Negative mg/dL (NEG-TRACE) Urine Glucose (UA) Negative mg/dL (NEG) Urine Ketones (Stick) Negative mg/dL (NEG) Urine Blood Negative (NEG) Urine Nitrite Negative (NEG) Urine Bilirubin Negative (NEG) Urine Urobilinogen Dipstick 2.0 mg/dL (0.2 mg/dL) Urine Leukocyte Esterase Negative (NEG) Urine RBC Occ /HPF (0-2) Urine WBC Occ /HPF (0-4) Urine Squamous Epithelial Cells Occ /LPF Urine Bacteria 0 /HPF (0-FEW) Urine Opiates Screen Neg (NEG) Urine Methadone Screen Neg (NEG) Urine Barbiturates Neg (NEG) Urine Phencyclidine Screen Neg (NEG) Urine Amphetamine/Methamphetamine Neg (NEG) Urine Benzodiazepines Screen Neg (NEG) Urine Cocaine Screen Neg (NEG) Urine Cannabinoids Screen Neg (NEG) Urine Ethyl Alcohol Pos (NEG) White Blood Count 8.4 x10^3/uL (4.0-11.0) Red Blood Count 4.16 x10^6/uL (4.30-5.70) Hemoglobin 14.4 g/dL (13.0-17.5) Hematocrit 42.2 % (39.0-53.0) Mean Corpuscular Volume 101 fL (79-100) Mean Corpuscular Hemoglobin 35 pg (25-35) Mean Corpuscular Hemoglobin Concent 34 g/dL (31-37) Red Cell Distribution Width 13.7 % (11.5-14.5) Platelet Count 149 x10^3/uL (140-400) Neutrophils (%) (Auto) 70 % (31-73) Lymphocytes (%) (Auto) 19 % (24-48) Monocytes (%) (Auto) 8 % (0-9) Eosinophils (%) (Auto) 3 % (0-3) Basophils (%) (Auto) 1 % (0-3) Neutrophils # (Auto) 5.9 x10^3uL (1.8-7.7) Lymphocytes # (Auto) 1.5 x10^3/uL (1.0-4.8) Monocytes # (Auto) 0.6 x10^3/uL (0.0-1.1) Eosinophils # (Auto) 0.2 x10^3/uL (0.0-0.7) Basophils # (Auto) 0.1 x10^3/uL (0.0-0.2) Prothrombin Time 13.0 SEC (11.7-14.0) Prothromb Time International Ratio 1.0 (0.8-1.1) Sodium Level 143 mmol/L (136-145) 143 mmol/L (136-145) Potassium Level 3.1 mmol/L (3.5-5.1) 3.0 mmol/L (3.5-5.1) Chloride Level 103 mmol/L (98-107) 105 mmol/L (98-107) Carbon Dioxide Level 30 mmol/L (21-32) 30 mmol/L (21-32) Anion Gap 10 (6-14) 8 (6-14) Blood Urea Nitrogen 11 mg/dL (8-26) 5 mg/dL (8-26) Creatinine 0.4 mg/dL (0.7-1.3) 0.4 mg/dL (0.7-1.3) Estimated GFR (Cockcroft-Gault) 223.3 223.3 BUN/Creatinine Ratio 28 (6-20) 13 (6-20) Glucose Level 93 mg/dL (70-99) 104 mg/dL (70-99) Calcium Level 8.8 mg/dL (8.5-10.1) 8.2 mg/dL (8.5-10.1) Magnesium Level 1.6 mg/dL (1.8-2.4) 1.7 mg/dL (1.8-2.4) Total Bilirubin 0.9 mg/dL (0.2-1.0) 0.9 mg/dL (0.2-1.0) Aspartate Amino Transf (AST/SGOT) 228 U/L (15-37) 150 U/L (15-37) Alanine Aminotransferase (ALT/SGPT) 135 U/L (16-63) 105 U/L (16-63) Alkaline Phosphatase 118 U/L (46-116) 83 U/L (46-116) Total Protein 7.2 g/dL (6.4-8.2) 6.1 g/dL (6.4-8.2) Albumin 3.2 g/dL (3.4-5.0) 2.6 g/dL (3.4-5.0) Albumin/Globulin Ratio 0.8 (1.0-1.7) 0.7 (1.0-1.7) Lipase 155 U/L (73-393) Ethyl Alcohol Level 146 mg/dL (0-10) Nasal Screen MRSA (PCR) Negative (Negative) Laboratory Tests Test 12/17/18 05:15 Sodium Level 143 mmol/L (136-145) Potassium Level 3.0 mmol/L (3.5-5.1) Chloride Level 105 mmol/L (98-107) Carbon Dioxide Level 30 mmol/L (21-32) Anion Gap 8 (6-14) Blood Urea Nitrogen 5 mg/dL (8-26) Creatinine 0.4 mg/dL (0.7-1.3) Estimated GFR (Cockcroft-Gault) 223.3 BUN/Creatinine Ratio 13 (6-20) Glucose Level 104 mg/dL (70-99) Calcium Level 8.2 mg/dL (8.5-10.1) Magnesium Level 1.7 mg/dL (1.8-2.4) Total Bilirubin 0.9 mg/dL (0.2-1.0) Aspartate Amino Transf (AST/SGOT) 150 U/L (15-37) Alanine Aminotransferase (ALT/SGPT) 105 U/L (16-63) Alkaline Phosphatase 83 U/L (46-116) Total Protein 6.1 g/dL (6.4-8.2) Albumin 2.6 g/dL (3.4-5.0) Albumin/Globulin Ratio 0.7 (1.0-1.7) Medications Current Medications Sodium Chloride 1,000 ml @ 1,000 mls/hr 1X ONCE IV Last administered on 01:24; Start 12/16/18 at 01:30; Stop 12/16/18 at 02:29; Status DC Lorazepam (Ativan) 1 mg 1X ONCE IV Last administered on 12/16/18 01:24; Start 12/16/18 at 01:30; Stop 12/16/18 at 01:31; Status DC Potassium Chloride (KCl Oral Soln) 40 meq 1X ONCE PO Last administered on 12/16 03:05; Start 12/16/18 at 02:30; Stop 12/16/18 at 02:31; Status DC Diphenhydramine HCl (Benadryl) 50 mg 1X ONCE PO Last administered on 03:06; Start 12/16/18 at 02:30; Stop 12/16/18 at 02:31; Status DC Magnesium Sulfate/ Dextrose 100 ml @ 100 mls/hr 1X ONCE IV Last administered on 12/16/18 03:06; Start 12/16/18 at 02:30; Stop 12/16/18 at 03:29; Status DC Multivitamins 10 ml/Thiamine HCl 100 mg/Folic Acid 1 mg/Sodium Chloride 1,011.2 ml @ 1,000.088 mls/hr 1X ONCE IV Last administered on 12/16/18 03:05; Start 12/16/18 at 03:00; Stop 12/16/18 at 04:00; Status DC Multivitamins (Thera M Plus) 1 tab DAILY PO Last administered on 12/17/18 08: 38; Start 12/16/18 at 09:00 Folic Acid (Folic Acid) 1 mg DAILY PO Last administered on 12/17/18 08:38; Start 12/16/18 at 09:00 Thiamine Mononitrate (Vitamin B-1) 100 mg DAILY PO Last administered on 08:38; Start 12/16/18 at 09:00 Lorazepam (Ativan) 2 mg PRN Q1HR PRN IV For CIWA 8-14 Last administered on 12/16 03:05; Start 12/16/18 at 02:45 Lorazepam (Ativan) 4 mg PRN Q1HR PRN IV For CIWA 15 or greater Last administered on 12/16/18at 17:34; Start 12/16/18 at 02:45 Diphenhydramine HCl (Benadryl) 25 mg PRN Q4HRS PRN IVP ITCHING Last administered on 12/16/18 07:38; Start 12/16/18 at 02:45; Stop 12/16/18 at 10:34 ; Status DC Tramadol HCl (Ultram) 50 mg 1X ONCE PO Last administered on 12/16/18 03:50; Start 12/16/18 at 04:00; Stop 12/16/18 at 04:01; Status DC Potassium Chloride/Dextrose/ Sod Cl 1,000 ml @ 75 mls/hr [id number] IV Last administered on 12/16/18at 12:09; Start 12/16/18 at 08:30 Diphenhydramine HCl (Benadryl) 50 mg PRN Q4HRS PRN IVP ITCHING Last administered on 12/16/18at 14:40; Start 12/16/18 at 10:45 Haloperidol Lactate (Haldol Inj) 5 mg PRN Q6HRS PRN IVP AGITATION Last administered on 12/16/18 17:34; Start 12/16/18 at 10:45 Lactulose (Lactulose) 20 gm PRN TID PRN PO CONSTIPATION; Start 12/16/18 at 13: 15 Vitals/I & O Vital Sign - Last 24 Hours 12/16/18 12/16/18 12/16/18 12/17/18 19:00 20:00 22:54 03:00 Temp 97.8 98.7 98.4 97.8 98.7 98.4 Pulse 76 90 85 Resp 18 20 16 B/P (MAP) 102/63 (76) 95/48 (64) 117/66 (83) Pulse Ox 96 92 92 O2 Delivery Room Air Room Air Room Air Room Air 12/17/18 12/17/18 07:00 08:00 Temp 98.0 98.0 Pulse 76 Resp 18 B/P (MAP) 117/70 (86) Pulse Ox 90 O2 Delivery Room Air Room Air Intake and Output 12/16/18 12/16/18 12/17/18 15:00 23:00 07:00 Intake Total 100 ml 1401 ml Output Total 200 ml 425 ml Balance 100 ml -200 ml 976 ml SHALINI CALVO III DO Dec 17, 2018 10:14
[2018-12-17 11:00] VITALS: BP 123/68
[2018-12-17] MEDS: POTASSIUM CL 40MEQ D5-0.45NACL 1,000 ML IV SCH (11:19)
--- NOTE | 2018-12-17 13:41 | NUR ---
Attempted to call (pt mom) back at number provided [phone] but was wrong number.
[2018-12-17 15:00] VITALS: BP 11/58
--- NOTE | 2018-12-17 18:32 | NUR ---
Friend Marie came in to request social work for assistance with inpatient drug treatment
[2018-12-17 19:00] VITALS: BP 103/58
[2018-12-17 23:00] VITALS: BP 129/78
[2018-12-17] MEDS: diphenhydrAMINE 50 MG/ML VIAL IVP PRN (23:31)
[2018-12-18] MEDS: POTASSIUM CL 40MEQ D5-0.45NACL 1,000 ML IV SCH ×2 (00:30→14:52)
[2018-12-18 02:57] VITALS: BP 98/52
[2018-12-18 04:20] LABS: BASO % 1 % (0-3); EOS # 0.3 x10^3/uL (0.0-0.7); EOS % 7 % (0-3); HEMATOCRIT 41.2 % (39.0-53.0); HEMOGLOBIN 13.7 g/dL (13.0-17.5); LYMPH # 1.4 x10^3/uL (1.0-4.8); LYMPH % 26 % (24-48); MEAN CORPUSCULAR HEMOGLOBIN 34 pg (25-35); MEAN CORPUSCULAR HGB CONC 33 g/dL (31-37); MEAN CORPUSCULAR VOLUME 103 fL (79-100); MONO # 0.5 x10^3/uL (0.0-1.1); MONO % 9 % (0-9); NEUT % 58 % (31-73); PLATELET COUNT 134 x10^3/uL (140-400); RED BLOOD COUNT 4.01 x10^6/uL (4.30-5.70); RED CELL DISTRIBUTION WIDTH 13.9 % (11.5-14.5); WHITE BLOOD COUNT 5.2 x10^3/uL (4.0-11.0)
[2018-12-18 05:29] LABS: ALBUMIN 2.7 g/dL (3.4-5.0); ALBUMIN/GLOBULIN RATIO 0.8 (1.0-1.7); CALCIUM 8.5 mg/dL (8.5-10.1); CREATININE 0.4 mg/dL (0.7-1.3); GFR 223.3; POTASSIUM 3.5 mmol/L (3.5-5.1); TOTAL BILIRUBIN 0.7 mg/dL (0.2-1.0); TOTAL PROTEIN 6.1 g/dL (6.4-8.2)
[2018-12-18 07:00] VITALS: BP 111/49
--- NOTE | 2018-12-18 07:00 | NUR ---
Pt care assumed from SHAZIA Fletcher and DENISHA Hill. Pt sleeping soundly, snoring with regular breathing pattern. VS taken, pt awakens enough to take oral temp and participate in BP/pulse ox placement. Pt advised that I will be present all shift, and can provide food, drink, meds, bathroom, etc., if pt needs/wishes. Pt verbalizes understanding and returns to sleep almost immediately.
[2018-12-18] MEDS: diphenhydrAMINE 50 MG/ML VIAL IVP PRN ×3 (08:10→18:57)
[2018-12-18] MEDS: LACTULOSE 20 GM/30 ML SOLUTION. PO PRN (08:11)
[2018-12-18] MEDS: THIAMINE 100 MG TABLET. PO SCH (08:11)
[2018-12-18] MEDS: MULTIVITAMIN with MINERAL TABLET. PO SCH (08:11)
[2018-12-18] MEDS: FOLIC ACID 1 MG TABLET. PO SCH (08:11)
--- NOTE | 2018-12-18 08:43 | NUR ---
Pt awakened for breakfast, assessment from [id number]. Pt reports pain 05/08, requesting tramadol (not available on NOV at this time). Pt states he takes tramadol or oxycodone outside hospital, as well as gabapentin 300mg TID. Cannot remember any other meds. States pain is "all over", but specifically in knees and back. Pt requesting Ativan for anxiety, restlessness and feeling "shaky". Would like lactulose for BM, after medication described. Pt took a sip of beer, declines to drink any more. Instead drinks 2 OJ, consumed entire breakfast aside from the beer and half a coffee w/cream and sugar. Pt states his intention to shower after he eats lunch, requests additional blankets and states he will likely sleep until lunch. Pt begins snoring immediately upon closing his eyes and pullling up blankets. Plan: contact MD regarding pain, home medications, lab results mag 1.6.
--- NOTE | 2018-12-18 09:40 | NUR ---
FRANCHESKA consulted for inpatient ETOH rehab. Spoke with pt at bedside who reports to having [place] Medicaid. Pt states he does not have his insurance card with him but 'was told at [facility], he had [place] Medicaid'. FRANCHESKA phoned PAT team for assessment and evaluation. Registration notified to verify insurance status. Will continue to follow. KARELY MCCRAY.
[2018-12-18 11:00] VITALS: BP 117/61
[2018-12-18] MEDS ORDERED: oxyCODONE/APAP 5/325 1 TAB TABLET PO PRN (11:00)
--- NOTE | 2018-12-18 11:03 | PDOC ---
PROGRESS NOTES Chief Complaint Chief Complaint Heavy alcohol abuse Tremors, alcohol withdrawal s/p banana bag HTN Hepatitis C - states he has severe fibrosis with likely cirrhosis Hypokalemia Hypomagnesemia - 4g to replace History of Present Illness History of Present Illness Mr. Rosario presented with tremors, confusion, found to have alcohol level > 100. Patient has long history of alcohol abuse. Patient seen and examined at bedside. Tremors have improved, very minimal. Magnesium low- replaced. Patient complaining of pain, otherwise no new complaints. Patient expresses interest in inpatient alcohol rehab, social work consulted. Discussed case with RN. Vitals Vitals Vital Signs Date Time Temp Pulse Resp B/P (MAP) Pulse Ox O2 Delivery O2 Flow Rate FiO2 12/18/18 08:00 Room Air 12/18/18 07:00 97.8 73 16 111/49 (69) 97.8 12/18/18 02:57 99 Physical Exam General: Alert, No acute distress, Other (oriented x 2) Heart: Regular rate, No murmurs Lungs: Clear Abdomen: Normal bowel sounds, Soft, No tenderness, No masses Extremities: No clubbing, No cyanosis, No edema, Normal pulses, No tenderness/ swelling Skin: No rashes, No significant lesion Labs LABS Laboratory Tests Test 12/18/18 03:50 White Blood Count 5.2 x10^3/uL (4.0-11.0) Red Blood Count 4.01 x10^6/uL (4.30-5.70) Hemoglobin 13.7 g/dL (13.0-17.5) Hematocrit 41.2 % (39.0-53.0) Mean Corpuscular Volume 103 fL (79-100) Mean Corpuscular Hemoglobin 34 pg (25-35) Mean Corpuscular Hemoglobin Concent 33 g/dL (31-37) Red Cell Distribution Width 13.9 % (11.5-14.5) Platelet Count 134 x10^3/uL (140-400) Neutrophils (%) (Auto) 58 % (31-73) Lymphocytes (%) (Auto) 26 % (24-48) Monocytes (%) (Auto) 9 % (0-9) Eosinophils (%) (Auto) 7 % (0-3) Basophils (%) (Auto) 1 % (0-3) Neutrophils # (Auto) 3.0 x10^3uL (1.8-7.7) Lymphocytes # (Auto) 1.4 x10^3/uL (1.0-4.8) Monocytes # (Auto) 0.5 x10^3/uL (0.0-1.1) Eosinophils # (Auto) 0.3 x10^3/uL (0.0-0.7) Basophils # (Auto) 0.0 x10^3/uL (0.0-0.2) Sodium Level 141 mmol/L (136-145) Potassium Level 3.5 mmol/L (3.5-5.1) Chloride Level 105 mmol/L (98-107) Carbon Dioxide Level 29 mmol/L (21-32) Anion Gap 7 (6-14) Blood Urea Nitrogen 6 mg/dL (8-26) Creatinine 0.4 mg/dL (0.7-1.3) Estimated GFR (Cockcroft-Gault) 223.3 BUN/Creatinine Ratio 15 (6-20) Glucose Level 108 mg/dL (70-99) Calcium Level 8.5 mg/dL (8.5-10.1) Magnesium Level 1.6 mg/dL (1.8-2.4) Total Bilirubin 0.7 mg/dL (0.2-1.0) Aspartate Amino Transf (AST/SGOT) 131 U/L (15-37) Alanine Aminotransferase (ALT/SGPT) 98 U/L (16-63) Alkaline Phosphatase 82 U/L (46-116) Total Protein 6.1 g/dL (6.4-8.2) Albumin 2.7 g/dL (3.4-5.0) Albumin/Globulin Ratio 0.8 (1.0-1.7) Review of Systems Review of Systems Reports pain Denies chest pain Denies shortness of breath Denies palpitations Assessment and Plan Assessmemt and Plan Assessment: Heavy alcohol abuse Tremors, alcohol withdrawal s/p banana bag HTN Hepatitis C - states he has severe fibrosis with likely cirrhosis Hypokalemia Hypomagnesemia - 4g to replace Plan: Appreciate social work input as far as plans for inpatient rehab Magnesium replaced, continue to monitor labs Prescribed percocet, gabapentin and tramadol Continue to monitor vitals Continue alcohol withdrawal protocol Comment Review of Relevant I have reviewed the following items tamika (where applicable) has been applied. Labs Laboratory Tests Test 12/17/18 05:15 12/18/18 03:50 Sodium Level 143 mmol/L (136-145) 141 mmol/L (136-145) Potassium Level 3.0 mmol/L (3.5-5.1) 3.5 mmol/L (3.5-5.1) Chloride Level 105 mmol/L (98-107) 105 mmol/L (98-107) Carbon Dioxide Level 30 mmol/L (21-32) 29 mmol/L (21-32) Anion Gap 8 (6-14) 7 (6-14) Blood Urea Nitrogen 5 mg/dL (8-26) 6 mg/dL (8-26) Creatinine 0.4 mg/dL (0.7-1.3) 0.4 mg/dL (0.7-1.3) Estimated GFR (Cockcroft-Gault) 223.3 223.3 BUN/Creatinine Ratio 13 (6-20) 15 (6-20) Glucose Level 104 mg/dL (70-99) 108 mg/dL (70-99) Calcium Level 8.2 mg/dL (8.5-10.1) 8.5 mg/dL (8.5-10.1) Magnesium Level 1.7 mg/dL (1.8-2.4) 1.6 mg/dL (1.8-2.4) Total Bilirubin 0.9 mg/dL (0.2-1.0) 0.7 mg/dL (0.2-1.0) Aspartate Amino Transf (AST/SGOT) 150 U/L (15-37) 131 U/L (15-37) Alanine Aminotransferase (ALT/SGPT) 105 U/L (16-63) 98 U/L (16-63) Alkaline Phosphatase 83 U/L (46-116) 82 U/L (46-116) Total Protein 6.1 g/dL (6.4-8.2) 6.1 g/dL (6.4-8.2) Albumin 2.6 g/dL (3.4-5.0) 2.7 g/dL (3.4-5.0) Albumin/Globulin Ratio 0.7 (1.0-1.7) 0.8 (1.0-1.7) White Blood Count 5.2 x10^3/uL (4.0-11.0) Red Blood Count 4.01 x10^6/uL (4.30-5.70) Hemoglobin 13.7 g/dL (13.0-17.5) Hematocrit 41.2 % (39.0-53.0) Mean Corpuscular Volume 103 fL (79-100) Mean Corpuscular Hemoglobin 34 pg (25-35) Mean Corpuscular Hemoglobin Concent 33 g/dL (31-37) Red Cell Distribution Width 13.9 % (11.5-14.5) Platelet Count 134 x10^3/uL (140-400) Neutrophils (%) (Auto) 58 % (31-73) Lymphocytes (%) (Auto) 26 % (24-48) Monocytes (%) (Auto) 9 % (0-9) Eosinophils (%) (Auto) 7 % (0-3) Basophils (%) (Auto) 1 % (0-3) Neutrophils # (Auto) 3.0 x10^3uL (1.8-7.7) Lymphocytes # (Auto) 1.4 x10^3/uL (1.0-4.8) Monocytes # (Auto) 0.5 x10^3/uL (0.0-1.1) Eosinophils # (Auto) 0.3 x10^3/uL (0.0-0.7) Basophils # (Auto) 0.0 x10^3/uL (0.0-0.2) Laboratory Tests Test 12/18/18 03:50 White Blood Count 5.2 x10^3/uL (4.0-11.0) Red Blood Count 4.01 x10^6/uL (4.30-5.70) Hemoglobin 13.7 g/dL (13.0-17.5) Hematocrit 41.2 % (39.0-53.0) Mean Corpuscular Volume 103 fL (79-100) Mean Corpuscular Hemoglobin 34 pg (25-35) Mean Corpuscular Hemoglobin Concent 33 g/dL (31-37) Red Cell Distribution Width 13.9 % (11.5-14.5) Platelet Count 134 x10^3/uL (140-400) Neutrophils (%) (Auto) 58 % (31-73) Lymphocytes (%) (Auto) 26 % (24-48) Monocytes (%) (Auto) 9 % (0-9) Eosinophils (%) (Auto) 7 % (0-3) Basophils (%) (Auto) 1 % (0-3) Neutrophils # (Auto) 3.0 x10^3uL (1.8-7.7) Lymphocytes # (Auto) 1.4 x10^3/uL (1.0-4.8) Monocytes # (Auto) 0.5 x10^3/uL (0.0-1.1) Eosinophils # (Auto) 0.3 x10^3/uL (0.0-0.7) Basophils # (Auto) 0.0 x10^3/uL (0.0-0.2) Sodium Level 141 mmol/L (136-145) Potassium Level 3.5 mmol/L (3.5-5.1) Chloride Level 105 mmol/L (98-107) Carbon Dioxide Level 29 mmol/L (21-32) Anion Gap 7 (6-14) Blood Urea Nitrogen 6 mg/dL (8-26) Creatinine 0.4 mg/dL (0.7-1.3) Estimated GFR (Cockcroft-Gault) 223.3 BUN/Creatinine Ratio 15 (6-20) Glucose Level 108 mg/dL (70-99) Calcium Level 8.5 mg/dL (8.5-10.1) Magnesium Level 1.6 mg/dL (1.8-2.4) Total Bilirubin 0.7 mg/dL (0.2-1.0) Aspartate Amino Transf (AST/SGOT) 131 U/L (15-37) Alanine Aminotransferase (ALT/SGPT) 98 U/L (16-63) Alkaline Phosphatase 82 U/L (46-116) Total Protein 6.1 g/dL (6.4-8.2) Albumin 2.7 g/dL (3.4-5.0) Albumin/Globulin Ratio 0.8 (1.0-1.7) Medications Current Medications Sodium Chloride 1,000 ml @ 1,000 mls/hr 1X ONCE IV Last administered on at 01:24; Start 12/16/18 at 01:30; Stop 12/16/18 at 02:29; Status DC Lorazepam (Ativan) 1 mg 1X ONCE IV Last administered on 12/16/18 01:24; Start 12/16/18 at 01:30; Stop 12/16/18 at 01:31; Status DC Potassium Chloride (KCl Oral Soln) 40 meq 1X ONCE PO Last administered on 12/16 03:05; Start 12/16/18 at 02:30; Stop 12/16/18 at 02:31; Status DC Diphenhydramine HCl (Benadryl) 50 mg 1X ONCE PO Last administered on 03:06; Start 12/16/18 at 02:30; Stop 12/16/18 at 02:31; Status DC Magnesium Sulfate/ Dextrose 100 ml @ 100 mls/hr 1X ONCE IV Last administered on 12/16/18 03:06; Start 12/16/18 at 02:30; Stop 12/16/18 at 03:29; Status DC Multivitamins 10 ml/Thiamine HCl 100 mg/Folic Acid 1 mg/Sodium Chloride 1,011.2 ml @ 1,000.088 mls/hr 1X ONCE IV Last administered on 12/16/18 03:05; Start 12/16/18 at 03:00; Stop 12/16/18 at 04:00; Status DC Multivitamins (Thera M Plus) 1 tab DAILY PO Last administered on 12/18/18 08: 11; Start 12/16/18 at 09:00 Folic Acid (Folic Acid) 1 mg DAILY PO Last administered on 12/18/18 08:11; Start 12/16/18 at 09:00 Thiamine Mononitrate (Vitamin B-1) 100 mg DAILY PO Last administered on 08:11; Start 12/16/18 at 09:00 Lorazepam (Ativan) 2 mg PRN Q1HR PRN IV For CIWA 8-14 Last administered on 12/18 08:10; Start 12/16/18 at 02:45 Lorazepam (Ativan) 4 mg PRN Q1HR PRN IV For CIWA 15 or greater Last administered on 12/16/18 17:34; Start 12/16/18 at 02:45 Diphenhydramine HCl (Benadryl) 25 mg PRN Q4HRS PRN IVP ITCHING Last administered on 12/16/18at 07:38; Start 12/16/18 at 02:45; Stop 12/16/18 at 10:34 ; Status DC Tramadol HCl (Ultram) 50 mg 1X ONCE PO Last administered on 12/16/18at 03:50; Start 12/16/18 at 04:00; Stop 12/16/18 at 04:01; Status DC Potassium Chloride/Dextrose/ Sod Cl 1,000 ml @ 75 mls/hr [id number] IV Last administered on 12/18/18at 00:30; Start 12/16/18 at 08:30 Diphenhydramine HCl (Benadryl) 50 mg PRN Q4HRS PRN IVP ITCHING Last administered on 12/18/18 08:10; Start 12/16/18 at 10:45 Haloperidol Lactate (Haldol Inj) 5 mg PRN Q6HRS PRN IVP AGITATION Last administered on 12/16/18at 17:34; Start 12/16/18 at 10:45 Lactulose (Lactulose) 20 gm PRN TID PRN PO CONSTIPATION Last administered on at 08:11; Start 12/16/18 at 13:15 Vitals/I & O Vital Sign - Last 24 Hours 12/17/18 12/17/18 12/17/18 12/17/18 11:00 15:00 19:00 19:29 Temp 97.7 98.4 98.1 97.7 98.4 98.1 Pulse 75 80 70 Resp 18 18 16 B/P (MAP) 123/68 (86) 11/58 (42) 103/58 (73) Pulse Ox 99 99 99 O2 Delivery Room Air Room Air Room Air Room Air 12/17/18 12/18/18 12/18/18 12/18/18 23:00 02:57 07:00 08:00 Temp 98.1 97.8 98.1 97.8 Pulse 79 72 73 Resp 17 16 16 B/P (MAP) 129/78 (95) 98/52 (67) 111/49 (69) Pulse Ox 98 99 O2 Delivery Room Air Room Air Room Air Room Air Intake and Output 12/17/18 12/17/18 12/18/18 15:00 23:00 07:00 Intake Total 1200 ml Output Total 850 ml Balance 350 ml SHALINI CALVO III DO Dec 18, 2018 11:03
--- NOTE | 2018-12-18 12:08 | NUR ---
Pt has had 4 consecutive CIWA scores under 6; timing of assessment for CIWA adjusted to Q6hrs per protocol.
--- NOTE | 2018-12-18 12:45 | NUR ---
Spoke w/pt's friend Marie at [phone]. Pt wishes to communicate to her that he is fine, but that we are having trouble finding a place for him post-DC. Marie states that pt has not been able to stay with her since 2 months in 2009 when he was released from [facility] custodial. She states pt drinks heavily daily, and then becomes angry and violent. She is afraid for his safety, and wants help finding him an inpatient rehab or some other care facility, "because of (pt's) bad judgement and the things he does to himself". She will try to come up and see him tonight, but is afraid he will be "turned out in the streets again and will not get the help he needs". She states again that she cannot do what is necessary to help him. Explained that pt is being held overnight to obtain additional assistance from outside in identifying potential options for DC tomorrow. Will call her if there is a change in that plan.
--- NOTE | 2018-12-18 12:51 | NUR ---
Pt anxious, states he needs his cell phone- which was in a pair of black pants with "Beaver" on them he was wearing when he came in. He searched all 3 green bags and his jacket, cell phone was not located. Call to ED [phone] to find out whether the pants were there- pending return call. Pt then states the cell phone was in a "cell phone wallet". Security paperwork does indicate that security has a wallet, two lighters and a box knife in their possession for him. Call to security [phone] indicates there is a brown wallet, but it is empty, and there is no cell phone. Pt is sleeping again, will revisit missing items at a later time. Pending return call from ED RE: black Beaver pants.
[2018-12-18] MEDS: GABAPENTIN 300 MG CAPSULE. PO SCH ×2 (13:46→20:05)
[2018-12-18] MEDS: traMADol 50 MG TABLET PO PRN (14:19)
[2018-12-18] MEDS: levETIRAcetam 500 MG TABLET PO SCH ×2 (14:54→20:05)
[2018-12-18 15:00] VITALS: BP 129/77
--- NOTE | 2018-12-18 15:01 | NUR ---
SW following pt. Pt seen by Feliz. Pt has been released from custodial in August and has been drinking ever since. Saman Ortiz, from [facility] will come in to meet with pt to assist in finding housing/placement in the [facility] side tomorrow. Pt also have active [place] Medicaid. Discussed with RN, if Saman Ortiz is not able to find placement, pt can go to homeless half-way. Pt is provided with various community resources.
--- NOTE | 2018-12-18 17:22 | NUR ---
Took over care of patient. Agree with nursing assessment done by SHAZIA Wade. Will continue to monitor patient.
[2018-12-18] MEDS ORDERED: OLAN5TAB9 PO (18:29)
[2018-12-18] MEDS ORDERED: NAPR-682 PO (18:29)
[2018-12-18] MEDS ORDERED: BUPR150T6 PO (18:29)
[2018-12-18] MEDS ORDERED: ACAM333T7 PO (18:29)
[2018-12-18] MEDS ORDERED: LITH300C PO (18:29)
[2018-12-18] MEDS ORDERED: TRAZ-118 PO (18:29)
[2018-12-18] MEDS ORDERED: GABA300C18 PO (18:29)
[2018-12-18] MEDS ORDERED: LEVE500T6 PO (18:29)
[2018-12-18] MEDS ORDERED: CLON0.5T11 PO (18:29)
[2018-12-18] MEDS ORDERED: MULT-237 PO (18:29)
[2018-12-18 18:58] VITALS: BP 128/81
[2018-12-18] MEDS: NICOTINE 21MG PATCH. TD PRN (20:05)
[2018-12-18 22:41] VITALS: BP 131/84
[2018-12-19 02:39] VITALS: BP 107/63
[2018-12-19] MEDS: POTASSIUM CL 40MEQ D5-0.45NACL 1,000 ML IV SCH (04:06)
[2018-12-19 04:41] LABS: BASO % 1 % (0-3); EOS # 0.3 x10^3/uL (0.0-0.7); EOS % 6 % (0-3); HEMATOCRIT 40.9 % (39.0-53.0); HEMOGLOBIN 13.7 g/dL (13.0-17.5); LYMPH # 1.4 x10^3/uL (1.0-4.8); LYMPH % 27 % (24-48); MEAN CORPUSCULAR HEMOGLOBIN 35 pg (25-35); MEAN CORPUSCULAR HGB CONC 34 g/dL (31-37); MEAN CORPUSCULAR VOLUME 104 fL (79-100); MONO # 0.6 x10^3/uL (0.0-1.1); MONO % 11 % (0-9); NEUT # 2.8 x10^3uL (1.8-7.7); NEUT % 54 % (31-73); PLATELET COUNT 123 x10^3/uL (140-400); RED BLOOD COUNT 3.95 x10^6/uL (4.30-5.70); RED CELL DISTRIBUTION WIDTH 14.1 % (11.5-14.5); WHITE BLOOD COUNT 5.1 x10^3/uL (4.0-11.0)
[2018-12-19 05:17] LABS: ALBUMIN 2.7 g/dL (3.4-5.0); ALBUMIN/GLOBULIN RATIO 0.8 (1.0-1.7); CALCIUM 8.6 mg/dL (8.5-10.1); CREATININE 0.4 mg/dL (0.7-1.3); GFR 223.3; POTASSIUM 4.3 mmol/L (3.5-5.1); TOTAL BILIRUBIN 0.7 mg/dL (0.2-1.0); TOTAL PROTEIN 6.3 g/dL (6.4-8.2)
[2018-12-19 06:59] VITALS: BP 113/62
[2018-12-19] MEDS: MULTIVITAMIN with MINERAL TABLET. PO SCH (08:33)
[2018-12-19] MEDS: levETIRAcetam 500 MG TABLET PO SCH ×2 (08:33→20:40)
[2018-12-19] MEDS: GABAPENTIN 300 MG CAPSULE. PO SCH ×3 (08:33→20:40)
[2018-12-19] MEDS: THIAMINE 100 MG TABLET. PO SCH (08:33)
[2018-12-19] MEDS: NICOTINE 21MG PATCH. TD PRN (08:33)
[2018-12-19] MEDS: traMADol 50 MG TABLET PO PRN ×2 (08:43→17:49)
[2018-12-19] MEDS: HALOPERIDOL LACTATE 5 MG/ML VIAL. IVP PRN (08:43)
[2018-12-19] MEDS: FOLIC ACID 1 MG TABLET. PO SCH (08:44)
[2018-12-19] MEDS ORDERED: ONDANSETRON PF 4 MG/2 ML VIAL. IV PRN (09:00)
[2018-12-19] MEDS ORDERED: chlordiazePOXIDE HCL 25 MG CAPSULE PO PRN (09:00)
[2018-12-19] MEDS ORDERED: IBUPROFEN 400 MG TABLET. PO PRN (09:00)
--- NOTE | 2018-12-19 10:44 | PDOC ---
PROGRESS NOTES Chief Complaint Chief Complaint Heavy alcohol abuse Tremors, alcohol withdrawal s/p banana bag HTN Hepatitis C - states he has severe fibrosis with likely cirrhosis Hypokalemia Hypomagnesemia - 4g to replace History of Present Illness History of Present Illness Ate 100% of his breakfast but still wobbly gait Potassium 4.3 on K IVF Sitter at bedside Has been in nursing home but since release August has been drinking heavy alcohol Alcohol levels 146 on admission Plan:NOt ready to DC - still gait unsteady Add Librium when necessary Stop K IVF is potassium is already 4.3 Discussed with sitter at bedside Vitals Vitals Vital Signs Date Time Temp Pulse Resp B/P (MAP) Pulse Ox O2 Delivery O2 Flow Rate FiO2 12/19/18 09:43 Room Air 12/19/18 06:59 98.2 71 113/62 (79) 97 98.2 12/19/18 02:39 16 12/18/18 15:00 99.0 Physical Exam General: Alert, No acute distress, Other (oriented x 2) Heart: Regular rate, No murmurs Lungs: Clear Abdomen: Normal bowel sounds, Soft, No tenderness, No masses Extremities: No clubbing, No cyanosis, No edema, Normal pulses, No tenderness/ swelling Skin: No rashes, No significant lesion Labs LABS Laboratory Tests Test 12/19/18 04:05 White Blood Count 5.1 x10^3/uL (4.0-11.0) Red Blood Count 3.95 x10^6/uL (4.30-5.70) Hemoglobin 13.7 g/dL (13.0-17.5) Hematocrit 40.9 % (39.0-53.0) Mean Corpuscular Volume 104 fL (79-100) Mean Corpuscular Hemoglobin 35 pg (25-35) Mean Corpuscular Hemoglobin Concent 34 g/dL (31-37) Red Cell Distribution Width 14.1 % (11.5-14.5) Platelet Count 123 x10^3/uL (140-400) Neutrophils (%) (Auto) 54 % (31-73) Lymphocytes (%) (Auto) 27 % (24-48) Monocytes (%) (Auto) 11 % (0-9) Eosinophils (%) (Auto) 6 % (0-3) Basophils (%) (Auto) 1 % (0-3) Neutrophils # (Auto) 2.8 x10^3uL (1.8-7.7) Lymphocytes # (Auto) 1.4 x10^3/uL (1.0-4.8) Monocytes # (Auto) 0.6 x10^3/uL (0.0-1.1) Eosinophils # (Auto) 0.3 x10^3/uL (0.0-0.7) Basophils # (Auto) 0.0 x10^3/uL (0.0-0.2) Sodium Level 140 mmol/L (136-145) Potassium Level 4.3 mmol/L (3.5-5.1) Chloride Level 105 mmol/L (98-107) Carbon Dioxide Level 30 mmol/L (21-32) Anion Gap 5 (6-14) Blood Urea Nitrogen 4 mg/dL (8-26) Creatinine 0.4 mg/dL (0.7-1.3) Estimated GFR (Cockcroft-Gault) 223.3 BUN/Creatinine Ratio 10 (6-20) Glucose Level 100 mg/dL (70-99) Calcium Level 8.6 mg/dL (8.5-10.1) Total Bilirubin 0.7 mg/dL (0.2-1.0) Aspartate Amino Transf (AST/SGOT) 127 U/L (15-37) Alanine Aminotransferase (ALT/SGPT) 90 U/L (16-63) Alkaline Phosphatase 85 U/L (46-116) Total Protein 6.3 g/dL (6.4-8.2) Albumin 2.7 g/dL (3.4-5.0) Albumin/Globulin Ratio 0.8 (1.0-1.7) Review of Systems Review of Systems Moe gait, the rest of ROS 14 point negative Comment Review of Relevant I have reviewed the following items tamika (where applicable) has been applied. Labs Laboratory Tests Test 12/18/18 03:50 12/19/18 04:05 White Blood Count 5.2 x10^3/uL (4.0-11.0) 5.1 x10^3/uL (4.0-11.0) Red Blood Count 4.01 x10^6/uL (4.30-5.70) 3.95 x10^6/uL (4.30-5.70) Hemoglobin 13.7 g/dL (13.0-17.5) 13.7 g/dL (13.0-17.5) Hematocrit 41.2 % (39.0-53.0) 40.9 % (39.0-53.0) Mean Corpuscular Volume 103 fL (79-100) 104 fL (79-100) Mean Corpuscular Hemoglobin 34 pg (25-35) 35 pg (25-35) Mean Corpuscular Hemoglobin Concent 33 g/dL (31-37) 34 g/dL (31-37) Red Cell Distribution Width 13.9 % (11.5-14.5) 14.1 % (11.5-14.5) Platelet Count 134 x10^3/uL (140-400) 123 x10^3/uL (140-400) Neutrophils (%) (Auto) 58 % (31-73) 54 % (31-73) Lymphocytes (%) (Auto) 26 % (24-48) 27 % (24-48) Monocytes (%) (Auto) 9 % (0-9) 11 % (0-9) Eosinophils (%) (Auto) 7 % (0-3) 6 % (0-3) Basophils (%) (Auto) 1 % (0-3) 1 % (0-3) Neutrophils # (Auto) 3.0 x10^3uL (1.8-7.7) 2.8 x10^3uL (1.8-7.7) Lymphocytes # (Auto) 1.4 x10^3/uL (1.0-4.8) 1.4 x10^3/uL (1.0-4.8) Monocytes # (Auto) 0.5 x10^3/uL (0.0-1.1) 0.6 x10^3/uL (0.0-1.1) Eosinophils # (Auto) 0.3 x10^3/uL (0.0-0.7) 0.3 x10^3/uL (0.0-0.7) Basophils # (Auto) 0.0 x10^3/uL (0.0-0.2) 0.0 x10^3/uL (0.0-0.2) Sodium Level 141 mmol/L (136-145) 140 mmol/L (136-145) Potassium Level 3.5 mmol/L (3.5-5.1) 4.3 mmol/L (3.5-5.1) Chloride Level 105 mmol/L (98-107) 105 mmol/L (98-107) Carbon Dioxide Level 29 mmol/L (21-32) 30 mmol/L (21-32) Anion Gap 7 (6-14) 5 (6-14) Blood Urea Nitrogen 6 mg/dL (8-26) 4 mg/dL (8-26) Creatinine 0.4 mg/dL (0.7-1.3) 0.4 mg/dL (0.7-1.3) Estimated GFR (Cockcroft-Gault) 223.3 223.3 BUN/Creatinine Ratio 15 (6-20) 10 (6-20) Glucose Level 108 mg/dL (70-99) 100 mg/dL (70-99) Calcium Level 8.5 mg/dL (8.5-10.1) 8.6 mg/dL (8.5-10.1) Magnesium Level 1.6 mg/dL (1.8-2.4) Total Bilirubin 0.7 mg/dL (0.2-1.0) 0.7 mg/dL (0.2-1.0) Aspartate Amino Transf (AST/SGOT) 131 U/L (15-37) 127 U/L (15-37) Alanine Aminotransferase (ALT/SGPT) 98 U/L (16-63) 90 U/L (16-63) Alkaline Phosphatase 82 U/L (46-116) 85 U/L (46-116) Total Protein 6.1 g/dL (6.4-8.2) 6.3 g/dL (6.4-8.2) Albumin 2.7 g/dL (3.4-5.0) 2.7 g/dL (3.4-5.0) Albumin/Globulin Ratio 0.8 (1.0-1.7) 0.8 (1.0-1.7) Laboratory Tests Test 12/19/18 04:05 White Blood Count 5.1 x10^3/uL (4.0-11.0) Red Blood Count 3.95 x10^6/uL (4.30-5.70) Hemoglobin 13.7 g/dL (13.0-17.5) Hematocrit 40.9 % (39.0-53.0) Mean Corpuscular Volume 104 fL (79-100) Mean Corpuscular Hemoglobin 35 pg (25-35) Mean Corpuscular Hemoglobin Concent 34 g/dL (31-37) Red Cell Distribution Width 14.1 % (11.5-14.5) Platelet Count 123 x10^3/uL (140-400) Neutrophils (%) (Auto) 54 % (31-73) Lymphocytes (%) (Auto) 27 % (24-48) Monocytes (%) (Auto) 11 % (0-9) Eosinophils (%) (Auto) 6 % (0-3) Basophils (%) (Auto) 1 % (0-3) Neutrophils # (Auto) 2.8 x10^3uL (1.8-7.7) Lymphocytes # (Auto) 1.4 x10^3/uL (1.0-4.8) Monocytes # (Auto) 0.6 x10^3/uL (0.0-1.1) Eosinophils # (Auto) 0.3 x10^3/uL (0.0-0.7) Basophils # (Auto) 0.0 x10^3/uL (0.0-0.2) Sodium Level 140 mmol/L (136-145) Potassium Level 4.3 mmol/L (3.5-5.1) Chloride Level 105 mmol/L (98-107) Carbon Dioxide Level 30 mmol/L (21-32) Anion Gap 5 (6-14) Blood Urea Nitrogen 4 mg/dL (8-26) Creatinine 0.4 mg/dL (0.7-1.3) Estimated GFR (Cockcroft-Gault) 223.3 BUN/Creatinine Ratio 10 (6-20) Glucose Level 100 mg/dL (70-99) Calcium Level 8.6 mg/dL (8.5-10.1) Total Bilirubin 0.7 mg/dL (0.2-1.0) Aspartate Amino Transf (AST/SGOT) 127 U/L (15-37) Alanine Aminotransferase (ALT/SGPT) 90 U/L (16-63) Alkaline Phosphatase 85 U/L (46-116) Total Protein 6.3 g/dL (6.4-8.2) Albumin 2.7 g/dL (3.4-5.0) Albumin/Globulin Ratio 0.8 (1.0-1.7) Medications Current Medications Sodium Chloride 1,000 ml @ 1,000 mls/hr 1X ONCE IV Last administered on 01:24; Start 12/16/18 at 01:30; Stop 12/16/18 at 02:29; Status DC Lorazepam (Ativan) 1 mg 1X ONCE IV Last administered on 12/16/18 01:24; Start 12/16/18 at 01:30; Stop 12/16/18 at 01:31; Status DC Potassium Chloride (KCl Oral Soln) 40 meq 1X ONCE PO Last administered on 12/16 03:05; Start 12/16/18 at 02:30; Stop 12/16/18 at 02:31; Status DC Diphenhydramine HCl (Benadryl) 50 mg 1X ONCE PO Last administered on 03:06; Start 12/16/18 at 02:30; Stop 12/16/18 at 02:31; Status DC Magnesium Sulfate/ Dextrose 100 ml @ 100 mls/hr 1X ONCE IV Last administered on 12/16/18 03:06; Start 12/16/18 at 02:30; Stop 12/16/18 at 03:29; Status DC Multivitamins 10 ml/Thiamine HCl 100 mg/Folic Acid 1 mg/Sodium Chloride 1,011.2 ml @ 1,000.088 mls/hr 1X ONCE IV Last administered on 12/16/18 03:05; Start 12/16/18 at 03:00; Stop 12/16/18 at 04:00; Status DC Multivitamins (Thera M Plus) 1 tab DAILY PO Last administered on 12/19/18 08: 33; Start 12/16/18 at 09:00 Folic Acid (Folic Acid) 1 mg DAILY PO Last administered on 12/19/18 08:44; Start 12/16/18 at 09:00 Thiamine Mononitrate (Vitamin B-1) 100 mg DAILY PO Last administered on 08:33; Start 12/16/18 at 09:00 Lorazepam (Ativan) 2 mg PRN Q1HR PRN IV For CIWA 8-14 Last administered on 12/18 14:59; Start 12/16/18 at 02:45 Lorazepam (Ativan) 4 mg PRN Q1HR PRN IV For CIWA 15 or greater Last administered on 12/16/18 17:34; Start 12/16/18 at 02:45 Diphenhydramine HCl (Benadryl) 25 mg PRN Q4HRS PRN IVP ITCHING Last administered on 12/16/18 07:38; Start 12/16/18 at 02:45; Stop 12/16/18 at 10:34 ; Status DC Tramadol HCl (Ultram) 50 mg 1X ONCE PO Last administered on 12/16/18 03:50; Start 12/16/18 at 04:00; Stop 12/16/18 at 04:01; Status DC Potassium Chloride/Dextrose/ Sod Cl 1,000 ml @ 75 mls/hr [id number] IV Last administered on 12/19/18 04:06; Start 12/16/18 at 08:30; Stop 12/19/18 at 09:02 ; Status DC Diphenhydramine HCl (Benadryl) 50 mg PRN Q4HRS PRN IVP ITCHING Last administered on 12/18/18 18:57; Start 12/16/18 at 10:45 Haloperidol Lactate (Haldol Inj) 5 mg PRN Q6HRS PRN IVP AGITATION Last administered on 12/19/18 08:43; Start 12/16/18 at 10:45 Lactulose (Lactulose) 20 gm PRN TID PRN PO CONSTIPATION Last administered on 08:11; Start 12/16/18 at 13:15 Oxycodone/ Acetaminophen (Percocet 5/325) 1 tab PRN Q6HRS PRN PO PAIN Last administered on 12/18/18 11:38; Start 12/18/18 at 11:00 Gabapentin (Neurontin) 300 mg TID PO Last administered on 12/19/18 08:33; Start 12/18/18 at 14:00 Tramadol HCl (Ultram) 50 mg PRN Q6HRS PRN PO PAIN Last administered on 08:43; Start 12/18/18 at 11:00 Levetiracetam (Keppra) 500 mg BID PO Last administered on 12/19/18at 08:33; Start 12/18/18 at 15:00 Nicotine (Nicoderm Cq 21mg) 1 patch PRN DAILY PRN TD SMOKING CESSATION Last administered on 12/19/18at 08:33; Start 12/18/18 at 20:00 Chlordiazepoxide (Librium) 25 mg PRN Q6HRS PRN PO ANXIETY / AGITATION; Start at 09:00 Ondansetron HCl (Zofran) 4 mg PRN Q6HRS PRN IV NAUSEA/VOMITING; Start 12/19/18 at 09:00 Ibuprofen (Motrin) 400 mg PRN Q6HRS PRN PO INFLAMMATION; Start 12/19/18 at 09: 00 Active Scripts Active Reported Levetiracetam 500 Mg Tablet 500 Mg PO BID Daily Vitamin Formula-Minerals (Multivitamin With Minerals) 1 Each Tablet 1 Each PO DAILY Trazodone Hcl 50 Mg Tablet 50 Mg PO HS Olanzapine 5 Mg Tablet 5 Mg PO HS Anaprox Ds (Naproxen Sodium) 550 Mg Tablet 550 Mg PO PRN BID PRN Gabapentin (Gabapentin) 300 Mg Capsule 300 Mg PO BID Acamprosate Calcium 333 Mg Tablet.dr 333 Mg PO TID Vitals/I & O Vital Sign - Last 24 Hours 12/18/18 12/18/18 12/18/18 12/18/18 11:00 11:38 12:38 14:19 Temp 98.3 98.3 Pulse 76 Resp 16 16 16 10 B/P (MAP) 117/61 (79) Pulse Ox 94 94 O2 Delivery Room Air Room Air Room Air Room Air 12/18/18 12/18/18 12/18/18 12/18/18 15:00 15:19 18:58 19:23 Temp 95.2 98.6 95.2 98.6 Pulse 72 75 Resp 18 18 18 B/P (MAP) 129/77 (94) 128/81 (97) Pulse Ox 99 98 O2 Delivery Room Air Room Air Room Air Room Air O2 Flow Rate 99.0 12/18/18 12/19/18 12/19/18 12/19/18 22:41 02:39 06:59 08:00 Temp 98.7 98.4 98.2 98.7 98.4 98.2 Pulse 74 74 71 Resp 18 16 B/P (MAP) 131/84 (100) 107/63 (78) 113/62 (79) Pulse Ox 99 97 97 O2 Delivery Room Air Room Air Room Air Room Air 12/19/18 12/19/18 08:43 09:43 O2 Delivery Room Air Room Air Intake and Output 12/18/18 12/18/18 12/19/18 15:00 23:00 07:00 Intake Total 590 ml 200 ml 250 ml Output Total 1250 ml 500 ml 800 ml Balance -660 ml -300 ml -550 ml AL CAMPOS MD Dec 19, 2018 10:44
[2018-12-19 10:51] VITALS: BP 102/48
[2018-12-19 14:55] VITALS: BP 111/63
[2018-12-19 19:00] VITALS: BP 98/49
[2018-12-19 22:38] VITALS: BP 125/76
[2018-12-20 03:00] VITALS: BP 130/69
[2018-12-20 07:00] VITALS: BP 134/83
[2018-12-20 07:13] LABS: BASO % 1 % (0-3); EOS # 0.3 x10^3/uL (0.0-0.7); EOS % 6 % (0-3); HEMATOCRIT 42.4 % (39.0-53.0); LYMPH # 1.3 x10^3/uL (1.0-4.8); LYMPH % 25 % (24-48); MEAN CORPUSCULAR HEMOGLOBIN 34 pg (25-35); MEAN CORPUSCULAR HGB CONC 33 g/dL (31-37); MEAN CORPUSCULAR VOLUME 104 fL (79-100); MONO # 0.5 x10^3/uL (0.0-1.1); MONO % 10 % (0-9); NEUT # 3.1 x10^3uL (1.8-7.7); NEUT % 59 % (31-73); PLATELET COUNT 138 x10^3/uL (140-400); RED BLOOD COUNT 4.08 x10^6/uL (4.30-5.70); RED CELL DISTRIBUTION WIDTH 14.3 % (11.5-14.5); WHITE BLOOD COUNT 5.3 x10^3/uL (4.0-11.0)
[2018-12-20] MEDS: NICOTINE 21MG PATCH. TD PRN (07:36)
[2018-12-20] MEDS: traMADol 50 MG TABLET PO PRN ×2 (07:36→14:25)
[2018-12-20] MEDS: levETIRAcetam 500 MG TABLET PO SCH ×2 (07:37→20:28)
[2018-12-20] MEDS: MULTIVITAMIN with MINERAL TABLET. PO SCH (07:37)
[2018-12-20] MEDS: THIAMINE 100 MG TABLET. PO SCH (07:37)
[2018-12-20] MEDS: FOLIC ACID 1 MG TABLET. PO SCH (07:37)
[2018-12-20] MEDS: GABAPENTIN 300 MG CAPSULE. PO SCH ×3 (07:37→20:29)
[2018-12-20 07:56] LABS: ALBUMIN 2.7 g/dL (3.4-5.0); ALBUMIN/GLOBULIN RATIO 0.7 (1.0-1.7); CALCIUM 8.6 mg/dL (8.5-10.1); CREATININE 0.4 mg/dL (0.7-1.3); GFR 223.3; POTASSIUM 4.3 mmol/L (3.5-5.1); TOTAL BILIRUBIN 0.4 mg/dL (0.2-1.0); TOTAL PROTEIN 6.5 g/dL (6.4-8.2)
--- NOTE | 2018-12-20 10:41 | PDOC ---
PROGRESS NOTES Chief Complaint Chief Complaint Heavy alcohol abuse Tremors, alcohol withdrawal s/p banana bag HTN Hepatitis C - states he has severe fibrosis with likely cirrhosis Hypokalemia Hypomagnesemia - 4g to replace History of Present Illness History of Present Illness Ate 100% of his breakfast Gait is much better today I was about ready to discharge but he relates that he is interested to go to a homeless [facility] He is also interested in getting AAA resources Sitter at bedside Has been in care home but since release August has been drinking heavy alcohol Alcohol levels 146 on admission, K now better (was hypokalemic) Plan: I have reconciled 10 home meds which he apparently takes Need to wait for social work for 2 things: homeless [facility] on discharge Friday and AAA referral May DC sitter when RN seems fit Discussed with SHAZIA Hernandez Vitals Vitals Vital Signs Date Time Temp Pulse Resp B/P (MAP) Pulse Ox O2 Delivery O2 Flow Rate FiO2 12/20/18 08:36 95 Room Air 12/20/18 07:00 97.6 81 18 134/83 (100) 97.6 12/19/18 22:38 99.0 Physical Exam General: Alert, No acute distress, Other (oriented x 2) Heart: Regular rate, No murmurs Lungs: Clear Abdomen: Normal bowel sounds, Soft, No tenderness, No masses Extremities: No clubbing, No cyanosis, No edema, Normal pulses, No tenderness/ swelling Skin: No rashes, No significant lesion Labs LABS Laboratory Tests Test 12/20/18 06:40 White Blood Count 5.3 x10^3/uL (4.0-11.0) Red Blood Count 4.08 x10^6/uL (4.30-5.70) Hemoglobin 14.0 g/dL (13.0-17.5) Hematocrit 42.4 % (39.0-53.0) Mean Corpuscular Volume 104 fL (79-100) Mean Corpuscular Hemoglobin 34 pg (25-35) Mean Corpuscular Hemoglobin Concent 33 g/dL (31-37) Red Cell Distribution Width 14.3 % (11.5-14.5) Platelet Count 138 x10^3/uL (140-400) Neutrophils (%) (Auto) 59 % (31-73) Lymphocytes (%) (Auto) 25 % (24-48) Monocytes (%) (Auto) 10 % (0-9) Eosinophils (%) (Auto) 6 % (0-3) Basophils (%) (Auto) 1 % (0-3) Neutrophils # (Auto) 3.1 x10^3uL (1.8-7.7) Lymphocytes # (Auto) 1.3 x10^3/uL (1.0-4.8) Monocytes # (Auto) 0.5 x10^3/uL (0.0-1.1) Eosinophils # (Auto) 0.3 x10^3/uL (0.0-0.7) Basophils # (Auto) 0.0 x10^3/uL (0.0-0.2) Sodium Level 137 mmol/L (136-145) Potassium Level 4.3 mmol/L (3.5-5.1) Chloride Level 101 mmol/L (98-107) Carbon Dioxide Level 31 mmol/L (21-32) Anion Gap 5 (6-14) Blood Urea Nitrogen 11 mg/dL (8-26) Creatinine 0.4 mg/dL (0.7-1.3) Estimated GFR (Cockcroft-Gault) 223.3 BUN/Creatinine Ratio 28 (6-20) Glucose Level 94 mg/dL (70-99) Calcium Level 8.6 mg/dL (8.5-10.1) Total Bilirubin 0.4 mg/dL (0.2-1.0) Aspartate Amino Transf (AST/SGOT) 133 U/L (15-37) Alanine Aminotransferase (ALT/SGPT) 97 U/L (16-63) Alkaline Phosphatase 91 U/L (46-116) Total Protein 6.5 g/dL (6.4-8.2) Albumin 2.7 g/dL (3.4-5.0) Albumin/Globulin Ratio 0.7 (1.0-1.7) Review of Systems Review of Systems A 14 point ROS was completed with the following noted as positive: Other systems reviewed and negative. \CONSTITUTIONAL: No fever or chills EYES: No recent changes SKIN: No rash or itching CARDIOVASCULAR: No chest pain, syncope, palpitations, or edema RESPIRATORY: No SOB or cough GASTROINTESTINAL: No nausea, vomiting or abdominal pain NEUROLOGICAL: No headaches or weakness ENDOCRINE: No cold or heat intolerance GENITOURINARY: No urgency or frequency of urination MUSCULOSKELETAL: No back pain or joint pain LYMPHATICS: No enlarged lymph nodes PSYCHIATRIC: No anxiety or depression Comment Review of Relevant I have reviewed the following items tamika (where applicable) has been applied. Labs Laboratory Tests Test 12/19/18 04:05 12/20/18 06:40 White Blood Count 5.1 x10^3/uL (4.0-11.0) 5.3 x10^3/uL (4.0-11.0) Red Blood Count 3.95 x10^6/uL (4.30-5.70) 4.08 x10^6/uL (4.30-5.70) Hemoglobin 13.7 g/dL (13.0-17.5) 14.0 g/dL (13.0-17.5) Hematocrit 40.9 % (39.0-53.0) 42.4 % (39.0-53.0) Mean Corpuscular Volume 104 fL (79-100) 104 fL (79-100) Mean Corpuscular Hemoglobin 35 pg (25-35) 34 pg (25-35) Mean Corpuscular Hemoglobin Concent 34 g/dL (31-37) 33 g/dL (31-37) Red Cell Distribution Width 14.1 % (11.5-14.5) 14.3 % (11.5-14.5) Platelet Count 123 x10^3/uL (140-400) 138 x10^3/uL (140-400) Neutrophils (%) (Auto) 54 % (31-73) 59 % (31-73) Lymphocytes (%) (Auto) 27 % (24-48) 25 % (24-48) Monocytes (%) (Auto) 11 % (0-9) 10 % (0-9) Eosinophils (%) (Auto) 6 % (0-3) 6 % (0-3) Basophils (%) (Auto) 1 % (0-3) 1 % (0-3) Neutrophils # (Auto) 2.8 x10^3uL (1.8-7.7) 3.1 x10^3uL (1.8-7.7) Lymphocytes # (Auto) 1.4 x10^3/uL (1.0-4.8) 1.3 x10^3/uL (1.0-4.8) Monocytes # (Auto) 0.6 x10^3/uL (0.0-1.1) 0.5 x10^3/uL (0.0-1.1) Eosinophils # (Auto) 0.3 x10^3/uL (0.0-0.7) 0.3 x10^3/uL (0.0-0.7) Basophils # (Auto) 0.0 x10^3/uL (0.0-0.2) 0.0 x10^3/uL (0.0-0.2) Sodium Level 140 mmol/L (136-145) 137 mmol/L (136-145) Potassium Level 4.3 mmol/L (3.5-5.1) 4.3 mmol/L (3.5-5.1) Chloride Level 105 mmol/L (98-107) 101 mmol/L (98-107) Carbon Dioxide Level 30 mmol/L (21-32) 31 mmol/L (21-32) Anion Gap 5 (6-14) 5 (6-14) Blood Urea Nitrogen 4 mg/dL (8-26) 11 mg/dL (8-26) Creatinine 0.4 mg/dL (0.7-1.3) 0.4 mg/dL (0.7-1.3) Estimated GFR (Cockcroft-Gault) 223.3 223.3 BUN/Creatinine Ratio 10 (6-20) 28 (6-20) Glucose Level 100 mg/dL (70-99) 94 mg/dL (70-99) Calcium Level 8.6 mg/dL (8.5-10.1) 8.6 mg/dL (8.5-10.1) Total Bilirubin 0.7 mg/dL (0.2-1.0) 0.4 mg/dL (0.2-1.0) Aspartate Amino Transf (AST/SGOT) 127 U/L (15-37) 133 U/L (15-37) Alanine Aminotransferase (ALT/SGPT) 90 U/L (16-63) 97 U/L (16-63) Alkaline Phosphatase 85 U/L (46-116) 91 U/L (46-116) Total Protein 6.3 g/dL (6.4-8.2) 6.5 g/dL (6.4-8.2) Albumin 2.7 g/dL (3.4-5.0) 2.7 g/dL (3.4-5.0) Albumin/Globulin Ratio 0.8 (1.0-1.7) 0.7 (1.0-1.7) Laboratory Tests Test 12/20/18 06:40 White Blood Count 5.3 x10^3/uL (4.0-11.0) Red Blood Count 4.08 x10^6/uL (4.30-5.70) Hemoglobin 14.0 g/dL (13.0-17.5) Hematocrit 42.4 % (39.0-53.0) Mean Corpuscular Volume 104 fL (79-100) Mean Corpuscular Hemoglobin 34 pg (25-35) Mean Corpuscular Hemoglobin Concent 33 g/dL (31-37) Red Cell Distribution Width 14.3 % (11.5-14.5) Platelet Count 138 x10^3/uL (140-400) Neutrophils (%) (Auto) 59 % (31-73) Lymphocytes (%) (Auto) 25 % (24-48) Monocytes (%) (Auto) 10 % (0-9) Eosinophils (%) (Auto) 6 % (0-3) Basophils (%) (Auto) 1 % (0-3) Neutrophils # (Auto) 3.1 x10^3uL (1.8-7.7) Lymphocytes # (Auto) 1.3 x10^3/uL (1.0-4.8) Monocytes # (Auto) 0.5 x10^3/uL (0.0-1.1) Eosinophils # (Auto) 0.3 x10^3/uL (0.0-0.7) Basophils # (Auto) 0.0 x10^3/uL (0.0-0.2) Sodium Level 137 mmol/L (136-145) Potassium Level 4.3 mmol/L (3.5-5.1) Chloride Level 101 mmol/L (98-107) Carbon Dioxide Level 31 mmol/L (21-32) Anion Gap 5 (6-14) Blood Urea Nitrogen 11 mg/dL (8-26) Creatinine 0.4 mg/dL (0.7-1.3) Estimated GFR (Cockcroft-Gault) 223.3 BUN/Creatinine Ratio 28 (6-20) Glucose Level 94 mg/dL (70-99) Calcium Level 8.6 mg/dL (8.5-10.1) Total Bilirubin 0.4 mg/dL (0.2-1.0) Aspartate Amino Transf (AST/SGOT) 133 U/L (15-37) Alanine Aminotransferase (ALT/SGPT) 97 U/L (16-63) Alkaline Phosphatase 91 U/L (46-116) Total Protein 6.5 g/dL (6.4-8.2) Albumin 2.7 g/dL (3.4-5.0) Albumin/Globulin Ratio 0.7 (1.0-1.7) Medications Current Medications Sodium Chloride 1,000 ml @ 1,000 mls/hr 1X ONCE IV Last administered on at 01:24; Start 12/16/18 at 01:30; Stop 12/16/18 at 02:29; Status DC Lorazepam (Ativan) 1 mg 1X ONCE IV Last administered on 12/16/18at 01:24; Start 12/16/18 at 01:30; Stop 12/16/18 at 01:31; Status DC Potassium Chloride (KCl Oral Soln) 40 meq 1X ONCE PO Last administered on 12/16at 03:05; Start 12/16/18 at 02:30; Stop 12/16/18 at 02:31; Status DC Diphenhydramine HCl (Benadryl) 50 mg 1X ONCE PO Last administered on 03:06; Start 12/16/18 at 02:30; Stop 12/16/18 at 02:31; Status DC Magnesium Sulfate/ Dextrose 100 ml @ 100 mls/hr 1X ONCE IV Last administered on 12/16/18at 03:06; Start 12/16/18 at 02:30; Stop 12/16/18 at 03:29; Status DC Multivitamins 10 ml/Thiamine HCl 100 mg/Folic Acid 1 mg/Sodium Chloride 1,011.2 ml @ 1,000.088 mls/hr 1X ONCE IV Last administered on 12/16/18at 03:05; Start 12/16/18 at 03:00; Stop 12/16/18 at 04:00; Status DC Multivitamins (Thera M Plus) 1 tab DAILY PO Last administered on 12/20/18 07: 37; Start 12/16/18 at 09:00 Folic Acid (Folic Acid) 1 mg DAILY PO Last administered on 12/20/18 07:37; Start 12/16/18 at 09:00 Thiamine Mononitrate (Vitamin B-1) 100 mg DAILY PO Last administered on 07:37; Start 12/16/18 at 09:00 Lorazepam (Ativan) 2 mg PRN Q1HR PRN IV For CIWA 8-14 Last administered on 12/18 14:59; Start 12/16/18 at 02:45 Lorazepam (Ativan) 4 mg PRN Q1HR PRN IV For CIWA 15 or greater Last administered on 12/16/18 17:34; Start 12/16/18 at 02:45 Diphenhydramine HCl (Benadryl) 25 mg PRN Q4HRS PRN IVP ITCHING Last administered on 12/16/18 07:38; Start 12/16/18 at 02:45; Stop 12/16/18 at 10:34 ; Status DC Tramadol HCl (Ultram) 50 mg 1X ONCE PO Last administered on 12/16/18 03:50; Start 12/16/18 at 04:00; Stop 12/16/18 at 04:01; Status DC Potassium Chloride/Dextrose/ Sod Cl 1,000 ml @ 75 mls/hr [id number] IV Last administered on 12/19/18 04:06; Start 12/16/18 at 08:30; Stop 12/19/18 at 09:02 ; Status DC Diphenhydramine HCl (Benadryl) 50 mg PRN Q4HRS PRN IVP ITCHING Last administered on 12/18/18 18:57; Start 12/16/18 at 10:45 Haloperidol Lactate (Haldol Inj) 5 mg PRN Q6HRS PRN IVP AGITATION Last administered on 12/19/18 08:43; Start 12/16/18 at 10:45 Lactulose (Lactulose) 20 gm PRN TID PRN PO CONSTIPATION Last administered on 08:11; Start 12/16/18 at 13:15 Oxycodone/ Acetaminophen (Percocet 5/325) 1 tab PRN Q6HRS PRN PO MODERATE PAIN Last administered on 12/18/18at 11:38; Start 12/18/18 at 11:00 Gabapentin (Neurontin) 300 mg TID PO Last administered on 12/20/18 07:37; Start 12/18/18 at 14:00 Tramadol HCl (Ultram) 50 mg PRN Q6HRS PRN PO MILD PAIN Last administered on 07:36; Start 12/18/18 at 11:00 Levetiracetam (Keppra) 500 mg BID PO Last administered on 12/20/18 07:37; Start 12/18/18 at 15:00 Nicotine (Nicoderm Cq 21mg) 1 patch PRN DAILY PRN TD SMOKING CESSATION Last administered on 12/20/18 07:36; Start 12/18/18 at 20:00 Chlordiazepoxide (Librium) 25 mg PRN Q6HRS PRN PO ANXIETY / AGITATION; Start at 09:00 Ondansetron HCl (Zofran) 4 mg PRN Q6HRS PRN IV NAUSEA/VOMITING; Start 12/19/18 at 09:00 Ibuprofen (Motrin) 400 mg PRN Q6HRS PRN PO INFLAMMATION; Start 12/19/18 at 09: 00 Active Scripts Active Reported [place] Carbonate 300 Mg Capsule 300 Mg PO BID Clonazepam 0.5 Mg Tablet 0.5 Mg PO TID Bupropion Xl (Bupropion Hcl) 150 Mg Tab.er.24h 150 Mg PO DAILY Levetiracetam 500 Mg Tablet 500 Mg PO BID Daily Vitamin Formula-Minerals (Multivitamin With Minerals) 1 Each Tablet 1 Each PO DAILY Trazodone Hcl 50 Mg Tablet 50 Mg PO HS Olanzapine 5 Mg Tablet 5 Mg PO HS Anaprox Ds (Naproxen Sodium) 550 Mg Tablet 550 Mg PO PRN BID PRN Gabapentin (Gabapentin) 300 Mg Capsule 300 Mg PO BID Acamprosate Calcium 333 Mg Tablet.dr 333 Mg PO TID Vitals/I & O Vital Sign - Last 24 Hours 12/19/18 12/19/18 12/19/18 12/19/18 10:51 14:55 17:49 19:00 Temp 98.2 98.2 98.2 98.2 98.2 98.2 Pulse 67 79 78 Resp 18 18 B/P (MAP) 102/48 (66) 111/63 (79) 98/49 (65) Pulse Ox 96 97 100 O2 Delivery Room Air Room Air Room Air Room Air O2 Flow Rate 99.0 12/19/18 12/19/18 12/20/18 12/20/18 19:46 22:38 03:00 07:00 Temp 98.9 98.8 97.6 98.9 98.8 97.6 Pulse 82 70 81 Resp 18 B/P (MAP) 125/76 (92) 130/69 (89) 134/83 (100) Pulse Ox 96 97 95 O2 Delivery Room Air Room Air O2 Flow Rate 99.0 12/20/18 12/20/18 12/20/18 07:36 07:45 08:36 Pulse Ox 95 O2 Delivery Room Air Room Air Room Air Intake and Output 12/19/18 12/19/18 12/20/18 15:00 23:00 07:00 Intake Total 420 ml 800 ml 420 ml Output Total 600 ml Balance -180 ml 800 ml 420 ml AL CAMPOS MD Dec 20, 2018 10:41
[2018-12-20 11:00] VITALS: BP 124/82
[2018-12-20] MEDS ORDERED: MULTIVITAMIN with MINERAL TABLET. PO SCH (11:00)
[2018-12-20] MEDS ORDERED: NAPROXEN 500 MG TABLET PO PRN (11:00)
[2018-12-20] MEDS ORDERED: levETIRAcetam 500 MG TABLET PO SCH (11:00)
[2018-12-20] MEDS ORDERED: GABAPENTIN 300 MG CAPSULE. PO SCH (11:00)
[2018-12-20] MEDS: clonazePAM 0.5 MG TABLET PO SCH ×3 (11:00→20:28)
[2018-12-20] MEDS: ACAMPROSATE CALCIUM 333 MG PO SCH ×2 (14:00→20:29)
[2018-12-20] MEDS: buPROPion XL 150 MG TAB.ER.24H. PO SCH (14:24)
[2018-12-20 15:00] VITALS: BP 120/67
[2018-12-20 19:00] VITALS: BP 110/64
--- NOTE | 2018-12-20 19:07 | NUR ---
Patient missing phone, searched everywhere and was not found. Called family members as well to ask if it was taken and denied. Will continue to monitor.
[2018-12-20] MEDS: OLANZapine 5 MG TABLET PO SCH (20:28)
[2018-12-20] MEDS: traZODone 50 MG TABLET. PO SCH (20:28)
[2018-12-20] MEDS: LITHIUM CARBONATE ER 300 MG TABLET.ER PO SCH (20:28)
[2018-12-20] MEDS: LACTULOSE 20 GM/30 ML SOLUTION. PO PRN (20:35)
[2018-12-20 23:00] VITALS: BP 123/67
[2018-12-21 03:02] VITALS: BP 132/82
[2018-12-21 03:55] LABS: BASO % 1 % (0-3); EOS # 0.3 x10^3/uL (0.0-0.7); EOS % 6 % (0-3); HEMATOCRIT 43.4 % (39.0-53.0); HEMOGLOBIN 14.3 g/dL (13.0-17.5); LYMPH # 1.3 x10^3/uL (1.0-4.8); LYMPH % 27 % (24-48); MEAN CORPUSCULAR HEMOGLOBIN 34 pg (25-35); MEAN CORPUSCULAR HGB CONC 33 g/dL (31-37); MEAN CORPUSCULAR VOLUME 105 fL (79-100); MONO # 0.6 x10^3/uL (0.0-1.1); MONO % 12 % (0-9); NEUT # 2.7 x10^3uL (1.8-7.7); NEUT % 54 % (31-73); PLATELET COUNT 149 x10^3/uL (140-400); RED BLOOD COUNT 4.16 x10^6/uL (4.30-5.70); RED CELL DISTRIBUTION WIDTH 14.5 % (11.5-14.5); WHITE BLOOD COUNT 4.9 x10^3/uL (4.0-11.0)
[2018-12-21 04:17] LABS: ALBUMIN 2.9 g/dL (3.4-5.0); ALBUMIN/GLOBULIN RATIO 0.7 (1.0-1.7); CALCIUM 8.8 mg/dL (8.5-10.1); CREATININE 0.5 mg/dL (0.7-1.3); GFR 172.6; POTASSIUM 4.3 mmol/L (3.5-5.1); TOTAL BILIRUBIN 0.4 mg/dL (0.2-1.0); TOTAL PROTEIN 6.9 g/dL (6.4-8.2)
[2018-12-21 07:00] VITALS: BP 135/74
[2018-12-21] MEDS: ACAMPROSATE CALCIUM 333 MG PO SCH ×3 (08:37→21:00)
[2018-12-21] MEDS: FOLIC ACID 1 MG TABLET. PO SCH (08:38)
[2018-12-21] MEDS: levETIRAcetam 500 MG TABLET PO SCH ×2 (08:38→20:27)
[2018-12-21] MEDS: clonazePAM 0.5 MG TABLET PO SCH ×3 (08:39→20:27)
[2018-12-21] MEDS: LITHIUM CARBONATE ER 300 MG TABLET.ER PO SCH ×2 (08:39→20:27)
[2018-12-21] MEDS: MULTIVITAMIN with MINERAL TABLET. PO SCH (08:40)
[2018-12-21] MEDS: GABAPENTIN 300 MG CAPSULE. PO SCH ×3 (08:40→20:27)
[2018-12-21] MEDS: THIAMINE 100 MG TABLET. PO SCH (08:40)
[2018-12-21] MEDS: buPROPion XL 150 MG TAB.ER.24H. PO SCH (08:40)
[2018-12-21] MEDS ORDERED: FOLI1TAB16 PO (09:30)
[2018-12-21] MEDS ORDERED: CHLO25CA9 PO (09:30)
[2018-12-21] MEDS ORDERED: THIA100T22 PO (09:30)
--- NOTE | 2018-12-21 10:43 | NUR ---
SW following pt. Spoke with pt regarding his meeting with Saman Colono and pt stated he does not remember. Attempted to call Saman Ortiz x2 and phone is not set up for Voice Mail. Spoke with RN that had pt over the weekend and Saman Colono had visited pt on Friday. The recommendation was to [place] [facility] [place] [facility]. SW phoned the detox center and pt [place] qualify [place] Spoke with Feliz and pt has to be with in three days of his last ETOH use to qualify for detox center. Feliz will also try to to reach Saman Colono. FRANCHESKA left a voice mail to Julio Rahman at [facility] requesting a call back. FRANCHESKA has notified pt and friend, Marie, pt might have to dc to homeless skilled nursing if SW is not able to find tx center. FRANCHESKA left a voice mail to [facility] homeless skilled nursing with a call back number. Discussed with RN. Will continue to follow.
[2018-12-21 10:49] VITALS: BP 128/70
--- NOTE | 2018-12-21 11:10 | SNU/HH DC ---
DISCHARGE ORDERS DISCHARGE INFORMATION: DISCHARGE DATE: Dec 21, 2018 CONDITION ON DISCHARGE: Stable CODE STATUS: Code Status: Full CORRECTION: SNF STAY <30 DAYS: Yes HOSPICE: HOSPICE: No HOSPICE EVAL & TREAT: No LTAC: ADMIT TO LTAC: No POST DISCHARGE ORDERS: ACTIVITY ORDERS: Resume previous activity WEIGHT BEARING STATUS: As tolerated DIET AFTER DISCHARGE: Regular CHECKS AFTER DISCHARGE: CHECKS AFTER DISCHARGE: Check blood press - daily TREATMENT/EQUIPMENT ORDERS: Physical Therapy For: Evalulation/Treatment Occupational Therapy For: Evaluation/Treatment DISCHARGE MEDICATIONS: Home Meds Active Scripts Thiamine Mononitrate (VITAMIN B-1) 100 Mg Tablet, 100 MG PO DAILY for mvi MDD 1 , #30 TAB Prov:AL CAMPOS MD 12/21/18 Folic Acid (FOLIC ACID) 1 Mg Tablet, 1 MG PO DAILY for mvi MDD 1, #30 TAB Prov:AL CAMPOS MD 12/21/18 Chlordiazepoxide Hcl (CHLORDIAZEPOXIDE HCL) 25 Mg Capsule, 25 MG PO PRN Q6HRS PRN for ANXIETY / AGITATION MDD 1, #30 CAP Prov:AL CAMPOS MD 12/21/18 Reported Medications [place] Carbonate (LITHIUM CARBONATE) 300 Mg Capsule, 300 MG PO BID for mood disorder, CAP 12/18/18 Clonazepam (CLONAZEPAM) 0.5 Mg Tablet, 0.5 MG PO TID for anxiety, TAB 12/18/18 Bupropion Hcl (BUPROPION XL) 150 Mg Tab.er.24h, 150 MG PO DAILY for antidepressant, TAB.SR 12/18/18 Levetiracetam (LEVETIRACETAM) 500 Mg Tablet, 500 MG PO BID for seizure, TAB 12/18/18 Multivitamin With Minerals (DAILY VITAMIN FORMULA-MINERALS) 1 Each Tablet, 1 EACH PO DAILY for supplement, TAB 12/18/18 Trazodone Hcl (TRAZODONE HCL) 50 Mg Tablet, 50 MG PO HS for insomnia, TAB 12/18/18 Olanzapine (OLANZAPINE) 5 Mg Tablet, 5 MG PO HS for mood disorder, TAB 12/18/18 Naproxen Sodium (ANAPROX DS) 550 Mg Tablet, 550 MG PO PRN BID PRN for PAIN, TAB 12/18/18 Gabapentin (GABAPENTIN ) 300 Mg Capsule, 300 MG PO BID for NEUROGENIC PAIN, CAP 12/18/18 Acamprosate Calcium (ACAMPROSATE CALCIUM) 333 Mg Tablet.dr, 333 MG PO TID for withdrawal symptoms, TAB.SR 12/18/18 AL CAMPOS MD Dec 21, 2018 11:09
--- NOTE | 2018-12-21 11:12 | PDOC3 ---
Discharge Summary Visit Information Date of Admission: Dec 16, 2018 Date of Discharge: Dec 21, 2018 Admitting Diagnosis Comment: Heavy alcohol abuse Tremors, alcohol withdrawal s/p banana bag HTN Hepatitis C - states he has severe fibrosis with likely cirrhosis Hypokalemia Hypomagnesemia - 4g to replace Brief Hospital Course Allergies Allergies Coded Allergies Type Severity Reaction Last Updated Verified Penicillins Allergy Intermediate 12/20/18 Yes Sulfa (Sulfonamide Antibiotics) Allergy Intermediate 11/27/18 Yes sulfamethoxazole Allergy Intermediate 12/20/18 Yes trimethoprim Allergy Intermediate 12/20/18 Yes Vital Signs Vital Signs Date Time Temp Pulse Resp B/P (MAP) Pulse Ox O2 Delivery O2 Flow Rate FiO2 12/21/18 10:49 97.8 80 18 128/70 (89) 97 Room Air 97.8 Lab Results Laboratory Tests Test 12/20/18 06:40 12/21/18 03:08 White Blood Count 5.3 x10^3/uL (4.0-11.0) 4.9 x10^3/uL (4.0-11.0) Red Blood Count 4.08 x10^6/uL (4.30-5.70) 4.16 x10^6/uL (4.30-5.70) Hemoglobin 14.0 g/dL (13.0-17.5) 14.3 g/dL (13.0-17.5) Hematocrit 42.4 % (39.0-53.0) 43.4 % (39.0-53.0) Mean Corpuscular Volume 104 fL (79-100) 105 fL (79-100) Mean Corpuscular Hemoglobin 34 pg (25-35) 34 pg (25-35) Mean Corpuscular Hemoglobin Concent 33 g/dL (31-37) 33 g/dL (31-37) Red Cell Distribution Width 14.3 % (11.5-14.5) 14.5 % (11.5-14.5) Platelet Count 138 x10^3/uL (140-400) 149 x10^3/uL (140-400) Neutrophils (%) (Auto) 59 % (31-73) 54 % (31-73) Lymphocytes (%) (Auto) 25 % (24-48) 27 % (24-48) Monocytes (%) (Auto) 10 % (0-9) 12 % (0-9) Eosinophils (%) (Auto) 6 % (0-3) 6 % (0-3) Basophils (%) (Auto) 1 % (0-3) 1 % (0-3) Neutrophils # (Auto) 3.1 x10^3uL (1.8-7.7) 2.7 x10^3uL (1.8-7.7) Lymphocytes # (Auto) 1.3 x10^3/uL (1.0-4.8) 1.3 x10^3/uL (1.0-4.8) Monocytes # (Auto) 0.5 x10^3/uL (0.0-1.1) 0.6 x10^3/uL (0.0-1.1) Eosinophils # (Auto) 0.3 x10^3/uL (0.0-0.7) 0.3 x10^3/uL (0.0-0.7) Basophils # (Auto) 0.0 x10^3/uL (0.0-0.2) 0.0 x10^3/uL (0.0-0.2) Sodium Level 137 mmol/L (136-145) 140 mmol/L (136-145) Potassium Level 4.3 mmol/L (3.5-5.1) 4.3 mmol/L (3.5-5.1) Chloride Level 101 mmol/L (98-107) 101 mmol/L (98-107) Carbon Dioxide Level 31 mmol/L (21-32) 33 mmol/L (21-32) Anion Gap 5 (6-14) 6 (6-14) Blood Urea Nitrogen 11 mg/dL (8-26) 9 mg/dL (8-26) Creatinine 0.4 mg/dL (0.7-1.3) 0.5 mg/dL (0.7-1.3) Estimated GFR (Cockcroft-Gault) 223.3 172.6 BUN/Creatinine Ratio 28 (6-20) 18 (6-20) Glucose Level 94 mg/dL (70-99) 121 mg/dL (70-99) Calcium Level 8.6 mg/dL (8.5-10.1) 8.8 mg/dL (8.5-10.1) Total Bilirubin 0.4 mg/dL (0.2-1.0) 0.4 mg/dL (0.2-1.0) Aspartate Amino Transf (AST/SGOT) 133 U/L (15-37) 142 U/L (15-37) Alanine Aminotransferase (ALT/SGPT) 97 U/L (16-63) 101 U/L (16-63) Alkaline Phosphatase 91 U/L (46-116) 90 U/L (46-116) Total Protein 6.5 g/dL (6.4-8.2) 6.9 g/dL (6.4-8.2) Albumin 2.7 g/dL (3.4-5.0) 2.9 g/dL (3.4-5.0) Albumin/Globulin Ratio 0.7 (1.0-1.7) 0.7 (1.0-1.7) Laboratory Tests Test 12/21/18 03:08 White Blood Count 4.9 x10^3/uL (4.0-11.0) Red Blood Count 4.16 x10^6/uL (4.30-5.70) Hemoglobin 14.3 g/dL (13.0-17.5) Hematocrit 43.4 % (39.0-53.0) Mean Corpuscular Volume 105 fL (79-100) Mean Corpuscular Hemoglobin 34 pg (25-35) Mean Corpuscular Hemoglobin Concent 33 g/dL (31-37) Red Cell Distribution Width 14.5 % (11.5-14.5) Platelet Count 149 x10^3/uL (140-400) Neutrophils (%) (Auto) 54 % (31-73) Lymphocytes (%) (Auto) 27 % (24-48) Monocytes (%) (Auto) 12 % (0-9) Eosinophils (%) (Auto) 6 % (0-3) Basophils (%) (Auto) 1 % (0-3) Neutrophils # (Auto) 2.7 x10^3uL (1.8-7.7) Lymphocytes # (Auto) 1.3 x10^3/uL (1.0-4.8) Monocytes # (Auto) 0.6 x10^3/uL (0.0-1.1) Eosinophils # (Auto) 0.3 x10^3/uL (0.0-0.7) Basophils # (Auto) 0.0 x10^3/uL (0.0-0.2) Sodium Level 140 mmol/L (136-145) Potassium Level 4.3 mmol/L (3.5-5.1) Chloride Level 101 mmol/L (98-107) Carbon Dioxide Level 33 mmol/L (21-32) Anion Gap 6 (6-14) Blood Urea Nitrogen 9 mg/dL (8-26) Creatinine 0.5 mg/dL (0.7-1.3) Estimated GFR (Cockcroft-Gault) 172.6 BUN/Creatinine Ratio 18 (6-20) Glucose Level 121 mg/dL (70-99) Calcium Level 8.8 mg/dL (8.5-10.1) Total Bilirubin 0.4 mg/dL (0.2-1.0) Aspartate Amino Transf (AST/SGOT) 142 U/L (15-37) Alanine Aminotransferase (ALT/SGPT) 101 U/L (16-63) Alkaline Phosphatase 90 U/L (46-116) Total Protein 6.9 g/dL (6.4-8.2) Albumin 2.9 g/dL (3.4-5.0) Albumin/Globulin Ratio 0.7 (1.0-1.7) Brief Hospital Course Mr. Rosario is a 53 old homeless male, heavy alcohol user. Admitted because of alcohol intoxication. Elevated alcohol levels. Needed a sitter because of agitation. Better after 4 days in the hospital. PT has recommended rehabilitation. He was also agreeable to homeless longterm but now might need rehabilitation. Librium on chart. He also takes back around 10 medications including some antidepressants and other stuff. Consults performed none Procedures performed none just a sitter Discussed with RN and social work dc < 30 Discharge Information Condition at Discharge: Improved, Stable Disposition/Orders: Other (rehab) Scheduled Acamprosate Calcium (Acamprosate Calcium) 333 Mg Tablet., 333 MG PO TID for withdrawal symptoms, (Reported) Entered as Reported by: CHACHO WALKER on 12/18/181828 Last Action: Converted on 12/20/18 1039 by AL CAMPOS Bupropion Hcl (Bupropion Xl) 150 Mg Tab.er.24h, 150 MG PO DAILY for antidepressant, (Reported) Entered as Reported by: CHACHO WALKER on 12/18/181828 Last Action: Continued on 12/20/181038 by AL CAMPOS Clonazepam (Clonazepam) 0.5 Mg Tablet, 0.5 MG PO TID for anxiety, (Reported) Entered as Reported by: CHACHO WALKER on 12/18/181828 Last Action: Continued on 12/20/181038 by AL CAMPOS Folic Acid (Folic Acid) 1 Mg Tablet, 1 MG PO DAILY for mvi MDD 1, #30 Prescribed by: AL CAMPOS on 12/21/1830 Gabapentin (Gabapentin ) 300 Mg Capsule, 300 MG PO BID for NEUROGENIC PAIN, ( Reported) Entered as Reported by: CHACHO WALKER on 12/18/181828 Last Action: Continued on 12/20/181038 by AL CAMPOS Levetiracetam (Levetiracetam) 500 Mg Tablet, 500 MG PO BID for seizure, ( Reported) Entered as Reported by: CHACHO WALKER on 12/18/181828 Last Action: Continued on 12/20/181038 by AL CAMPOS Baylis Carbonate (Baylis Carbonate) 300 Mg Capsule, 300 MG PO BID for mood disorder, (Reported) Entered as Reported by: CHACHO WALKER on 12/18/181828 Last Action: Converted on 12/20/181038 by AL CAMPOS Multivitamin With Minerals (Daily Vitamin Formula-Minerals) 1 Each Tablet, 1 EACH PO DAILY for supplement, (Reported) Entered as Reported by: CHACHO WALKER on 12/18/181828 Last Action: Converted on 12/20/181038 by AL CAMPOS Olanzapine (Olanzapine) 5 Mg Tablet, 5 MG PO HS for mood disorder, (Reported) Entered as Reported by: CHACHO WALKER on 12/18/181828 Last Action: Converted on 12/20/181038 by AL CAMPOS Thiamine Mononitrate (Vitamin B-1) 100 Mg Tablet, 100 MG PO DAILY for mvi MDD 1 , #30 Prescribed by: AL CAMPOS on 12/21/1830 Trazodone Hcl (Trazodone Hcl) 50 Mg Tablet, 50 MG PO HS for insomnia, (Reported) Entered as Reported by: CHACHO WALKER on 12/18/181828 Last Action: Continued on 12/20/181038 by AL CAMPOS Scheduled PRN Chlordiazepoxide Hcl (Chlordiazepoxide Hcl) 25 Mg Capsule, 25 MG PO PRN Q6HRS PRN for ANXIETY / AGITATION MDD 1, #30 Prescribed by: AL CAMPOS on 12/21/18 0930 Naproxen Sodium (Anaprox Ds) 550 Mg Tablet, 550 MG PO PRN BID PRN for PAIN, ( Reported) Entered as Reported by: CHACHO WALKER on 12/18/181828 Last Action: Converted on 12/20/181038 by AL COLEY MD Dec 21, 2018 11:11
--- NOTE | 2018-12-21 12:52 | NUR ---
FRANCHESKA following pt. Spoke with Marlen at [facility] regarding PT recommendation for rehab. [facility] declined to take pt as pt is very high level after clinicals are reviewed by the director of player personnel. Marlen reported insurance will likely deny approval for request as well as pt is high level. Referral faxed to [facility] as well. [facility] homeless [facility] javier start assigning bed at 1500 today.
[2018-12-21] MEDS: traMADol 50 MG TABLET PO PRN (14:06)
[2018-12-21 15:01] VITALS: BP 138/79
--- NOTE | 2018-12-21 15:23 | NUR ---
SW following pt. Spoke with Saman Piper and Julio at [facility]. SW provided med list to [facility]. Saman Ortiz will come in tomorrow at [address] [facility]. Discussed with pt at bedside and he is agreeable with plan. Pt did not qualify for acute rehab placement at [facility] but is able to go to [facility] for ETOH tx. RN and Physician notified.
[2018-12-21 19:00] VITALS: BP 123/81
[2018-12-21] MEDS: traZODone 50 MG TABLET. PO SCH (20:27)
[2018-12-21] MEDS: OLANZapine 5 MG TABLET PO SCH (20:27)
[2018-12-21] MEDS: LACTULOSE 20 GM/30 ML SOLUTION. PO PRN (20:27)
[2018-12-21] MEDS: NICOTINE 21MG PATCH. TD PRN (22:36)
[2018-12-21 23:00] VITALS: BP 125/76
[2018-12-22 03:00] VITALS: BP 118/68
[2018-12-22 04:30] LABS: BASO # 0.1 x10^3/uL (0.0-0.2); BASO % 1 % (0-3); EOS # 0.3 x10^3/uL (0.0-0.7); EOS % 5 % (0-3); HEMOGLOBIN 15.2 g/dL (13.0-17.5); LYMPH # 1.4 x10^3/uL (1.0-4.8); LYMPH % 21 % (24-48); MEAN CORPUSCULAR HEMOGLOBIN 35 pg (25-35); MEAN CORPUSCULAR HGB CONC 34 g/dL (31-37); MEAN CORPUSCULAR VOLUME 104 fL (79-100); MONO # 0.9 x10^3/uL (0.0-1.1); MONO % 14 % (0-9); NEUT # 4.1 x10^3uL (1.8-7.7); NEUT % 60 % (31-73); PLATELET COUNT 173 x10^3/uL (140-400); RED BLOOD COUNT 4.35 x10^6/uL (4.30-5.70); RED CELL DISTRIBUTION WIDTH 14.5 % (11.5-14.5); WHITE BLOOD COUNT 6.8 x10^3/uL (4.0-11.0)
[2018-12-22 05:07] LABS: ALBUMIN 3.3 g/dL (3.4-5.0); ALBUMIN/GLOBULIN RATIO 0.8 (1.0-1.7); CALCIUM 9.2 mg/dL (8.5-10.1); CREATININE 0.6 mg/dL (0.7-1.3); GFR 139.9; POTASSIUM 4.6 mmol/L (3.5-5.1); TOTAL BILIRUBIN 0.4 mg/dL (0.2-1.0); TOTAL PROTEIN 7.6 g/dL (6.4-8.2)
[2018-12-22 07:00] VITALS: BP 103/58
[2018-12-22] MEDS: clonazePAM 0.5 MG TABLET PO SCH (08:29)
[2018-12-22] MEDS: THIAMINE 100 MG TABLET. PO SCH (08:29)
[2018-12-22] MEDS: buPROPion XL 150 MG TAB.ER.24H. PO SCH (08:30)
[2018-12-22] MEDS: GABAPENTIN 300 MG CAPSULE. PO SCH (08:30)
[2018-12-22] MEDS: levETIRAcetam 500 MG TABLET PO SCH (08:30)
[2018-12-22] MEDS: FOLIC ACID 1 MG TABLET. PO SCH (08:30)
[2018-12-22] MEDS: MULTIVITAMIN with MINERAL TABLET. PO SCH (08:30)
[2018-12-22] MEDS: LITHIUM CARBONATE ER 300 MG TABLET.ER PO SCH (08:30)
[2018-12-22] MEDS: traMADol 50 MG TABLET PO PRN (08:35)
--- NOTE | 2018-12-22 10:08 | NUR ---
Pt released to from Rehab this morning at appros 0815. This RN gave all morning medications and 1 PRN Tramadol. Pt left in stable condition with SW.
--- NOTE | 2018-12-22 10:19 | NUR ---
Discharge Note: CRYSTAL SEVILLA BOZMAN Discharge instructions and discharge home medications reviewed with Other facility and a copy given. All questions have been answered and understanding verbalized. The following instructions and handouts were given: ETOH abuse Discontinued lines and drains: Peripheral IV intact. Patient discharged to [facility]hab Facility [facility] Discharged with SW from [facility]
== END 2018-12-22 08:15 | DRG 896 ==
LOC: ER 00:41 → 5 NORTH 02:40
PROVIDERS: ADMIT Internal Medicine; ATTEND Internal Medicine
DX: F10.121 Alcohol abuse with intoxication delirium (principal); G93.41 Metabolic encephalopathy; K74.60 Unspecified cirrhosis of liver; E87.6 Hypokalemia; E83.42 Hypomagnesemia; B19.20 Unspecified viral hepatitis C without hepatic coma; I10 Essential (primary) hypertension; F17.210 Nicotine dependence, cigarettes, uncomplicated; F39 Unspecified mood [affective] disorder; G89.29 Other chronic pain; F41.9 Anxiety disorder, unspecified; G47.00 Insomnia, unspecified; I71.4 Abdominal aortic aneurysm, without rupture; R56.9 Unspecified convulsions; Y90.5 Blood alcohol level of 100-119 mg/100 ml; Z79.899 Other long term (current) drug therapy; M19.90 Unspecified osteoarthritis, unspecified site; Z59.0 Homelessness
CPT/HCPCS: 36415; 70450; 71045; 80053; 80307; 81001; 83690; 83735; 85025; 85610; 87641; 93005; 96361; 96365; 96368; 96375; G0480; J1200; J1630; J2060; J3475; J7030; J7042; Q0163; 99285-25

== ENCOUNTER 2019-01-16 21:16 | Inpatient (IN) | payer MEDICAID ==
[~2019-01-16] VITALS: Ht 172.7 cm; Wt 64.6 kg
[~2019-01-16 21:16] MED LIST: ACAM333T7 PO; BUPR150T6 PO; CHLO25CA9 PO; CLON0.5T11 PO; FOLI1TAB16 PO; GABA300C18 PO; LEVE500T6 PO; LITH300C PO; MULT-237 PO; NAPR-682 PO; OLAN5TAB9 PO; THIA100T22 PO; TRAZ-118 PO
--- NOTE | 2019-01-16 22:05 | RAD ---
CT Head W/O Contrast: History: trauma, AMS Comparison: none Axial images were obtained without contrast. The yoder and white matter appears normal and symmetrical for the patients age. There is no mass effect, extraaxial fluid collections or hydrocephalus. There is no gross bleed. There is no focal loss of yoder-white matter distinction to suggest acute ischemia, i.e. stroke. Impression: No acute findings. End impression CT C-Spine without contrast: Clinical History: trauma, AMS Technique: Axial helical images of the cervical spine were obtained without contrast, axial coronal and sagittal reconstruction was performed. Findings: There is no loss of vertebral body stature. There is no prevertebral soft tissue swelling. There is degenerative dextroconvex curvature of the C-spine. The vertebral bodies are well aligned in the sagittal plane. The C1-C2 relationship is normal. The visualized osseous structures appear normal. Evaluation of the central canal is limited without contrast. There is multiple posterior disc bulges resulting in flattening of the thecal sac. There does not appear to be gross flattening of the cervical cord. There is moderate narrowing of multiple neuroforamen. Impression: No acute findings. Clinical correlation suggested. PQRS Compliance Statement: One or more of the following individualized dose reduction techniques were utilized for this examination: 1. Automated exposure control 2. Adjustment of the mA and/or kV according to patient size 3. Use of iterative reconstruction technique Electronically signed by: Naresh Urbano III, MD (01/16/2019 10:02 PM) [id number]
[2019-01-16 22:23] LABS: BASO # 0.1 x10^3/uL (0.0-0.2); BASO % 1 % (0-3); EOS # 0.5 x10^3/uL (0.0-0.7); EOS % 4 % (0-3); HEMATOCRIT 43.2 % (39.0-53.0); HEMOGLOBIN 14.8 g/dL (13.0-17.5); LYMPH # 2.9 x10^3/uL (1.0-4.8); LYMPH % 28 % (24-48); MEAN CORPUSCULAR HEMOGLOBIN 34 pg (25-35); MEAN CORPUSCULAR HGB CONC 34 g/dL (31-37); MEAN CORPUSCULAR VOLUME 100 fL (79-100); MONO # 0.7 x10^3/uL (0.0-1.1); MONO % 7 % (0-9); NEUT # 6.3 x10^3uL (1.8-7.7); NEUT % 61 % (31-73); PLATELET COUNT 196 x10^3/uL (140-400); RED BLOOD COUNT 4.32 x10^6/uL (4.30-5.70); WHITE BLOOD COUNT 10.4 x10^3/uL (4.0-11.0)
[2019-01-16] MEDS ORDERED: levETIRAcetam 1,000 MG in IV DEXTROSE 5% 100ML 100 ML IV ONE (22:30)
[2019-01-16] MEDS ORDERED: MULTIVIT INFUSN,ADULT 4,VIT K 10 ML, THIAMINE INJ 100 MG, FOLIC ACID INJ 1 MG in IV NOR... IV ONE (22:30)
[2019-01-16] MEDS ORDERED: FAMOTIDINE 20 MG/2 ML VIAL IVP ONE (22:30)
[2019-01-16 22:34] LABS: CALCIUM 8.8 mg/dL (8.5-10.1); CREATININE 0.5 mg/dL (0.7-1.3); GFR 172.6; POTASSIUM 3.2 mmol/L (3.5-5.1)
[2019-01-16 22:40] LABS: ALBUMIN 3.2 g/dL (3.4-5.0); ALBUMIN/GLOBULIN RATIO 0.8 (1.0-1.7); TOTAL BILIRUBIN 0.4 mg/dL (0.2-1.0); TOTAL PROTEIN 7.2 g/dL (6.4-8.2)
[2019-01-16 23:03] LABS: BILIRUBIN,URINE SMALL (NEG); CLARITY,URINE CLOUDY; COLOR,URINE AMBER; NITRITE,URINE NEGATIVE (NEG); PROTEIN,URINE NEGATIVE (NEG-TRACE)
[2019-01-16 23:09] LABS: BARBITURATES NEG (NEG); BENZODIAZEPINES NEG (NEG); CANNABINOIDS NEG (NEG); COCAINE NEG (NEG); METHADONE NEG (NEG); OPIATES NEG (NEG); PHENCYCLIDINE NEG (NEG)
[2019-01-16 23:12] LABS: AMPHETAMINE/METHAMPHETAMINE NEG (NEG)
[2019-01-16 23:13] LABS: BACTERIA,URINE 0 /HPF (0-FEW); HYALINE CASTS, URINE FEW /HPF; RBC,URINE 0 /HPF (0-2); SQUAMOUS EPITHELIAL CELL,UR OCC /LPF; WBC,URINE OCC /HPF (0-4)
--- NOTE | 2019-01-17 00:10 | PHYS DOC ---
Past Medical History Past Medical History: Alcoholism, Hypertension, Hepatitis, Other Additional Past Medical Histor: OSTEOARTHRITIS, CHRONIC PAIN, HEP ENCEPHALOPATHY, TBI, HEP C Past Surgical History: Other Additional Past Surgical Histo: 'NECK AND BACK SURGERY' Alcohol Use: Heavy Drug Use: None Adult General Chief Complaint Chief Complaint: MECHANICAL FALL HPI HPI Patient is a 53 year old male well-known to this emergency department with history of chronic alcoholism, chronic brain injury, left upper, left lower extremity hemiparesis, hepatitis C who presents with alcohol intoxication in public and witnessed seizure episode. Patient was found lying on the ground outside of a local store. Alert and oriented to person and place, GCS 14. Return to baseline on ED arrival. Patient states he drank a half, alcohol today and has not taken his Keppra over 2-1/2 days. Denies headache, neck pain. Reports chronic shoulder and leg pain. No other acute symptoms or complaints.[] Review of Systems Review of Systems Review of symptoms as per history of present illness. All other review symptoms are negative. All other systems were reviewed and found to be within normal limits, except as documented in this note. Current Medications Current Medications Current Medications Medications (Trade) Dose Ordered Sig/Dawit Start Time Stop Time Status Last Admin Dose Admin Famotidine (Pepcid Vial) 20 mg 1X ONCE 01/16/19 22:30 01/16/19 22:31 DC 01/16/19 22:46 20 MG Levetiracetam 1000 mg/Dextrose 110 ml @ 440 mls/hr 1X ONCE 01/16/19 22:30 01/16/19 22:44 DC 01/16/19 22:46 440 MLS/HR Magnesium Sulfate/ Dextrose 100 ml @ 100 mls/hr 1X ONCE 01/17/19 00:00 01/17/19 00:59 Multivitamins 10 ml/Thiamine HCl 100 mg/Folic Acid 1 mg/Sodium Chloride 1,011.2 ml @ 1,000.088 mls/hr 1X ONCE 01/16/19 22:30 01/16/19 23:30 DC 01/16/19 22:47 1,000.088 MLS/HR Allergies Allergies Allergies Coded Allergies Type Severity Reaction Last Updated Verified Penicillins Allergy Intermediate 12/20/18 Yes Sulfa (Sulfonamide Antibiotics) Allergy Intermediate 11/27/18 Yes sulfamethoxazole Allergy Intermediate 12/20/18 Yes trimethoprim Allergy Intermediate 12/20/18 Yes Physical Exam Physical Exam Constitutional: Well developed, well nourished, no acute distress, non-toxic appearance. [] HENT: Normocephalic, atraumatic, bilateral external ears normal, oropharynx moist, nose normal. [] Eyes: PERRLA, EOMI, conjunctiva injected, no discharge. [] Neck: Normal range of motion, no tenderness. [] Cardiovascular:Heart rate regular rhythm, no murmur. [] Lungs & Thorax: Bilateral breath sounds clear to auscultation. [] Abdomen: Bowel sounds normal, soft, no tenderness. [] Skin: Warm, dry. [] Back: No tenderness. [] Extremities: No tenderness, no cyanosis, no clubbing, ROM intact, no edema. [] Neurologic: Alert and oriented X 2, normal motor function, normal sensory function, no focal deficits noted. [] Psychologic: Affect normal, judgement normal, mood normal. [] Current Patient Data Lab Values Laboratory Tests Test 01/16/19 22:07 01/16/19 22:15 01/16/19 22:55 Glucose (Fingerstick) 142 mg/dL (70-99) H White Blood Count 10.4 x10^3/uL (4.0-11.0) Red Blood Count 4.32 x10^6/uL (4.30-5.70) Hemoglobin 14.8 g/dL (13.0-17.5) Hematocrit 43.2 % (39.0-53.0) Mean Corpuscular Volume 100 fL (79-100) Mean Corpuscular Hemoglobin 34 pg (25-35) Mean Corpuscular Hemoglobin Concent 34 g/dL (31-37) Red Cell Distribution Width 14.0 % (11.5-14.5) Platelet Count 196 x10^3/uL (140-400) Neutrophils (%) (Auto) 61 % (31-73) Lymphocytes (%) (Auto) 28 % (24-48) Monocytes (%) (Auto) 7 % (0-9) Eosinophils (%) (Auto) 4 % (0-3) H Basophils (%) (Auto) 1 % (0-3) Neutrophils # (Auto) 6.3 x10^3uL (1.8-7.7) Lymphocytes # (Auto) 2.9 x10^3/uL (1.0-4.8) Monocytes # (Auto) 0.7 x10^3/uL (0.0-1.1) Eosinophils # (Auto) 0.5 x10^3/uL (0.0-0.7) Basophils # (Auto) 0.1 x10^3/uL (0.0-0.2) Sodium Level 144 mmol/L (136-145) Potassium Level 3.2 mmol/L (3.5-5.1) L Chloride Level 104 mmol/L (98-107) Carbon Dioxide Level 29 mmol/L (21-32) Anion Gap 11 (6-14) Blood Urea Nitrogen 8 mg/dL (8-26) Creatinine 0.5 mg/dL (0.7-1.3) L Estimated GFR (Cockcroft-Gault) 172.6 BUN/Creatinine Ratio 16 (6-20) Glucose Level 143 mg/dL (70-99) H Calcium Level 8.8 mg/dL (8.5-10.1) Magnesium Level 1.6 mg/dL (1.8-2.4) L Total Bilirubin 0.4 mg/dL (0.2-1.0) Aspartate Amino Transferase (AST) 162 U/L (15-37) H Alanine Aminotransferase (ALT) 109 U/L (16-63) H Alkaline Phosphatase 85 U/L (46-116) Total Protein 7.2 g/dL (6.4-8.2) Albumin 3.2 g/dL (3.4-5.0) L Albumin/Globulin Ratio 0.8 (1.0-1.7) L Thyroid Stimulating Hormone (TSH) 0.497 uIU/mL (0.358-3.74) Ethyl Alcohol Level 269 mg/dL (0-10) H Urine Collection Type Unknown Urine Color Heena Urine Clarity Cloudy Urine pH 6.0 Urine Specific [place] 1.020 Urine Protein Negative mg/dL (NEG-TRACE) Urine Glucose (UA) Negative mg/dL (NEG) Urine Ketones (Stick) Trace mg/dL (NEG) Urine Blood Negative (NEG) Urine Nitrite Negative (NEG) Urine Bilirubin Small (NEG) Urine Urobilinogen Dipstick 2.0 mg/dL (0.2 mg/dL) Urine Leukocyte Esterase Negative (NEG) Urine RBC 0 /HPF (0-2) Urine WBC Occ /HPF (0-4) Urine Squamous Epithelial Cells Occ /LPF Urine Bacteria 0 /HPF (0-FEW) Urine Hyaline Casts Few /HPF Urine Mucus Marked /LPF Urine Opiates Screen Neg (NEG) Urine Methadone Screen Neg (NEG) Urine Barbiturates Neg (NEG) Urine Phencyclidine Screen Neg (NEG) Urine Amphetamine/Methamphetamine Neg (NEG) Urine Benzodiazepines Screen Neg (NEG) Urine Cocaine Screen Neg (NEG) Urine Cannabinoids Screen Neg (NEG) Urine Ethyl Alcohol Pos (NEG) Laboratory Tests 01/16/19 22:15 Laboratory Tests 01/16/19 22:15 EKG EKG [EKG: Reviewed] Radiology/Procedures Radiology/Procedures [CT Head/cervical spine: Reviewed, no acute findings per radiology report.] Chest x-ray: [facility] right middle lobe infiltrate Course & Med Decision Making Course & Med Decision Making Pertinent Labs and Imaging studies reviewed. (See chart for details) [IV Keppra given. IV antibiotics given, pending official radiology read. Patient be admitted to the hospitalist service for further evaluation and treatment.] Dragon Disclaimer Dragon Disclaimer This electronic medical record was generated, in whole or in part, using a voice recognition dictation system. Departure Departure Impression: Primary Impression: Alcohol dependence Additional Impression: Seizure Disposition: 09 ADMITTED INPATIENT Admitting Physician: Other (Dr. Damon) Condition: STABLE Referrals: NO PCP (PCP) Problem Qualifiers LUZMA RAMIREZ DO Jan 17, 2019 00:10
[2019-01-17] MEDS ORDERED: ONDANSETRON PF 4 MG/2 ML VIAL. IV PRN (00:30)
[2019-01-17] MEDS ORDERED: AZITHRMYCN 500MG IVPB FOR OMNI 250 ML IV ONE (00:30)
[2019-01-17] MEDS ORDERED: cefTRIAXone IV Push 1 GM VIAL. IVP ONE (00:30)
[2019-01-17] MEDS: LORazepam 1 MG TABLET PO SCH ×2 (02:30→06:30)
[2019-01-17] MEDS: IV NORMAL SALINE 1000ML BAG 1,000 ML IV SCH ×2 (02:30→18:53)
[2019-01-17 02:45] VITALS: BP 91/55
[2019-01-17] MEDS ORDERED: BUSP10TA PO (03:59)
--- NOTE | 2019-01-17 06:40 | NUR ---
pt refused ativan. pt stated he is allergic to it, made him "breakout really bad". will continue to monitor pt.
[2019-01-17 07:00] VITALS: BP 113/71
[2019-01-17] MEDS: IPRATRPIUM/ALBUTEROL 0.5/2.5MG 3 ML NEBU. NEB SCH ×4 (08:13→21:08)
--- NOTE | 2019-01-17 08:44 | RAD ---
CHEST AP ONLY Clinical History: TRAUMA Technique: AP view of the chest was obtained at 01/16/2019 9:26 PM. Comparison: December 16, 2018. Findings: The cardiomediastinal silhouette is normal. The pulmonary vasculature is normal. There is patchy opacity in the right lung base laterally. There has been prior resection of the distal left clavicle. Impression: Mild right basal infiltrate could be discoid atelectasis or pulmonary contusion. Electronically signed by: Naresh Urbano III, MD (01/17/2019 8:41 AM) [facility]
--- NOTE | 2019-01-17 09:05 | PDOC1 ---
History and Physical Date of Admission Date of Admission DATE: 01/17/19 TIME: 09:04 Identification/Chief Complaint Chief Complaint SEEN IN ER , history of heavy alcoholism, HTN, hepatitis C (stage 4 fibrosis per pt) who presented to the ED WITH witnessed seizure episode. Patient was found lying on the ground outside of a local store. Alert and oriented to person and place now, , GCS 14 in er . Return to baseline on ED arrival. Patient states he drank a half, alcohol 01/16 and has not taken his Keppra over 2 -1/2 days Pt states he also had "a really bad TBI" that causes him to "fall all the time." he experiences delirium tremens if he goes longer than an hour without drinking. Past Medical History Past Medical History Past Medical History Past Medical History: Alcoholism, Hypertension, Hepatitis, Other Additional Past Medical Histor: OSTEOARTHRITIS, CHRONIC PAIN, HEP ENCEPHALOPATHY, TBI, HEP C Past Surgical History: Other Additional Past Surgical Histo: 'NECK AND BACK SURGERY' Alcohol Use: Heavy Drug Use: None FAMILY HX HTN Cardiovascular: HTN Pulmonary: No pertinent hx CENTRAL NERVOUS SYSTEM: Seizure GI: Gastritis Heme/Onc: Anemia NOS Hepatobiliary: Cirrhosis, Hep A/B/C Psych: No pertinent hx Rheumatologic: No pertinent hx Infectious disease: No pertinent hx Renal/: No pertinent hx Endocrine: No pertinent hx Dermatology: No pertinent hx Past Surgical History Past Surgical History: No pertinent history Family History Family History: Alcohol Abuse, Family History Unknown Social History Smoke: <1 pack per day ALCOHOL: heavy Drugs: None Current Problem List Problem List Problems Medical Problems: (1) Seizure Status: Acute Current Medications Current Medications Current Medications Levetiracetam 1000 mg/Dextrose 110 ml @ 440 mls/hr 1X ONCE IV Last administered on 01/16/19at 22:46; Start 01/16/19 at 22:30; Stop 01/16/19 at 22:44 ; Status DC Multivitamins 10 ml/Thiamine HCl 100 mg/Folic Acid 1 mg/Sodium Chloride 1,011.2 ml @ 1,000.088 mls/hr 1X ONCE IV Last administered on 01/16/19at 22:47; Start 01/16/19 at 22:30; Stop 01/16/19 at 23:30; Status DC Famotidine (Pepcid Vial) 20 mg 1X ONCE IVP Last administered on 01/16/19at 22: 46; Start 01/16/19 at 22:30; Stop 01/16/19 at 22:31; Status DC Magnesium Sulfate/ Dextrose 100 ml @ 100 mls/hr 1X ONCE IV Last administered on 01/17/19at 01:01; Start 01/17/19 at 00:00; Stop 01/17/19 at 00:59; Status DC Ondansetron HCl (Zofran) 4 mg PRN Q8HRS PRN IV NAUSEA/VOMITING; Start 01/17/19 at 00:30; Stop 01/18/19 at 00:29 Sodium Chloride 1,000 ml @ 75 mls/hr [id number] IV Last administered on at 02:30; Start 01/17/19 at 00:30; Stop 01/18/19 at 00:29 Albuterol/ Ipratropium (Duoneb) 3 ml RTQID NEB Last administered on 01/17/19at 08:13; Start 01/17/19 at 08:00; Stop 01/18/19 at 07:59 Levetiracetam 1000 mg/Dextrose 110 ml @ 440 mls/hr Q12HR IV ; Start 01/17/19 at 09:00 Ceftriaxone Sodium (Rocephin) 1 gm 1X ONCE IVP Last administered on 01/17/19at 01:01; Start 01/17/19 at 00:30; Stop 01/17/19 at 00:31; Status DC Azithromycin 250 ml @ 250 mls/hr 1X ONCE IV Last administered on 01/17/19at 02 :30; Start 01/17/19 at 00:30; Stop 01/17/19 at 01:29; Status DC Multivitamins (Thera M Plus) 1 tab DAILY PO ; Start 01/17/19 at 09:00 Famotidine (Pepcid Vial) 20 mg Q12HR IVP ; Start 01/17/19 at 09:00 Lorazepam (Ativan) 2 mg Q6H PO ; Start 01/17/19 at 00:30; Stop 01/17/19 at 06:47 ; Status DC Active Scripts Active Vitamin B-1 (Thiamine Mononitrate) 100 Mg Tablet 100 Mg PO DAILY MDD 1 Folic Acid 1 Mg Tablet 1 Mg PO DAILY MDD 1 Chlordiazepoxide Hcl 25 Mg Capsule 25 Mg PO PRN Q6HRS PRN MDD 1 Reported Buspirone Hcl 10 Mg Tablet 1 Tab PO BID Levetiracetam 500 Mg Tablet 500 Mg PO BID Olanzapine 5 Mg Tablet 10 Mg PO HS Gabapentin (Gabapentin) 300 Mg Capsule 300 Mg PO BID Acamprosate Calcium 333 Mg Tablet.dr 333 Mg PO TID Allergies Allergies: Coded Allergies: Penicillins (Verified Allergy, Intermediate, 12/20/18) Sulfa (Sulfonamide Antibiotics) (Verified Allergy, Intermediate, 11/27/18) lorazepam (Verified Allergy, Intermediate, Rash, 01/17/19) sulfamethoxazole (Verified Allergy, Intermediate, 12/20/18) trimethoprim (Verified Allergy, Intermediate, 12/20/18) ROS Review of System Review of Systems Review of Systems Review of symptoms as per history of present illness. 14 PT systems were reviewed and found to be within normal limits, except as documented General: YES: Fatigue PSYCHOLOGICAL ROS: YES: Anxiety, Depression Eyes: No Blurry vision, No Decreased vision, No Double vision, No Dry eyes, No Excessive tearing, No Eye Pain, No Itchy Eyes, No Loss of vision, No Photophobia , No Scotomata, No Uses contacts, No Uses glasses, No Other ALLERGY AND IMMUNOLOGY: No: Hives, Insect Bite Sensitivity, Itchy/Watery Eyes, Nasal Congestion, Post Nasal Drip, Seasonal Allergies, Other Hematological and Lymphatic: No: Bleeding Problems, Blood Clots, Blood Transfusions, Brusing, Night Sweats, Pallor, Swollen Lymph Nodes, Other ENDOCRINE: No: Breast Changes, Galactorrhea, Hair Pattern Changes, Hot Flashes , Malaise/lethargy, Mood Swings, Palpitations, Polydipsia/polyuria, Skin Changes , Temperature Intolerance, Unexpected Weight Changes, Other Respiratory: No: Cough, Hemoptysis, Orthopnea, Pleuritic Pain, Shortness of breath, SOB with excertion, Sputum Changes, Stridor, Tachypnea, Wheezing, Other Cardiovascular: No Chest Pain, No Palpitations, No Orthopnea, No Paroxysmal Noc. Dyspnea, No Edema, No Lt Headedness, No Other Gastrointestinal: Yes Nausea Musculoskeletal: Yes Gait Disturbance Neurological: Yes Behavorial Changes, Yes Confusion, Yes Gait Disturbance Skin: Yes Dry Skin; No Eczema, No Hair Changes, No Lumps, No Mole Changes, No Mottling, No Nail Changes, No Pruritus, No Rash, No Skin Lesion Changes, No Other, No Acne Physical Exam Physical Exam Physical Exam Physical Exam Constitutional: Well developed, well nourished, no acute distress, non-toxic appearance. [] HENT: Normocephalic, atraumatic, bilateral external ears normal, oropharynx moist, nose normal. [] Eyes: PERRLA, EOMI, conjunctiva injected, no discharge. [] Neck: Normal range of motion, no tenderness. [] Cardiovascular:Heart rate regular rhythm, no murmur. [] Lungs & Thorax: Bilateral breath sounds clear to auscultation. [] Abdomen: Bowel sounds normal, soft, no tenderness. [] Skin: Warm, dry. [] Back: No tenderness. [] Extremities: No tenderness, no cyanosis, no clubbing, ROM intact, no edema. [] Neurologic: Alert and oriented X 2, normal motor function, normal sensory function, no focal deficits noted. [] Psychologic: Affect normal, judgement POOR , mood normal. [] General: Alert, Cooperative, mild distress HEENT: PERRLA Heart: RRR Breasts: Not examined Rectal Exam: not examined PELVIC: Examination not indicated Extremities: No cyanosis Skin: No significant lesion Neuro: Normal speech, Cranial nerves 3-12 NL Psych/Mental Status: Mental status NL, Mood NL (flat affect) Vitals Vitals Vital Signs Date Time Temp Pulse Resp B/P (MAP) Pulse Ox O2 Delivery O2 Flow Rate FiO2 01/17/19 08:16 98 Room Air 01/17/19 02:45 97.6 80 20 91/55 (67) 97.6 Labs Labs Laboratory Tests Test 01/16/19 22:07 01/16/19 22:15 01/16/19 22:55 Glucose (Fingerstick) 142 mg/dL (70-99) White Blood Count 10.4 x10^3/uL (4.0-11.0) Red Blood Count 4.32 x10^6/uL (4.30-5.70) Hemoglobin 14.8 g/dL (13.0-17.5) Hematocrit 43.2 % (39.0-53.0) Mean Corpuscular Volume 100 fL (79-100) Mean Corpuscular Hemoglobin 34 pg (25-35) Mean Corpuscular Hemoglobin Concent 34 g/dL (31-37) Red Cell Distribution Width 14.0 % (11.5-14.5) Platelet Count 196 x10^3/uL (140-400) Neutrophils (%) (Auto) 61 % (31-73) Lymphocytes (%) (Auto) 28 % (24-48) Monocytes (%) (Auto) 7 % (0-9) Eosinophils (%) (Auto) 4 % (0-3) Basophils (%) (Auto) 1 % (0-3) Neutrophils # (Auto) 6.3 x10^3uL (1.8-7.7) Lymphocytes # (Auto) 2.9 x10^3/uL (1.0-4.8) Monocytes # (Auto) 0.7 x10^3/uL (0.0-1.1) Eosinophils # (Auto) 0.5 x10^3/uL (0.0-0.7) Basophils # (Auto) 0.1 x10^3/uL (0.0-0.2) Sodium Level 144 mmol/L (136-145) Potassium Level 3.2 mmol/L (3.5-5.1) Chloride Level 104 mmol/L (98-107) Carbon Dioxide Level 29 mmol/L (21-32) Anion Gap 11 (6-14) Blood Urea Nitrogen 8 mg/dL (8-26) Creatinine 0.5 mg/dL (0.7-1.3) Estimated GFR (Cockcroft-Gault) 172.6 BUN/Creatinine Ratio 16 (6-20) Glucose Level 143 mg/dL (70-99) Calcium Level 8.8 mg/dL (8.5-10.1) Magnesium Level 1.6 mg/dL (1.8-2.4) Total Bilirubin 0.4 mg/dL (0.2-1.0) Aspartate Amino Transf (AST/SGOT) 162 U/L (15-37) Alanine Aminotransferase (ALT/SGPT) 109 U/L (16-63) Alkaline Phosphatase 85 U/L (46-116) Total Protein 7.2 g/dL (6.4-8.2) Albumin 3.2 g/dL (3.4-5.0) Albumin/Globulin Ratio 0.8 (1.0-1.7) Thyroid Stimulating Hormone (TSH) 0.497 uIU/mL (0.358-3.74) Ethyl Alcohol Level 269 mg/dL (0-10) Urine Collection Type Unknown Urine Color Heena Urine Clarity Cloudy Urine pH 6.0 Urine Specific [place] 1.020 Urine Protein Negative mg/dL (NEG-TRACE) Urine Glucose (UA) Negative mg/dL (NEG) Urine Ketones (Stick) Trace mg/dL (NEG) Urine Blood Negative (NEG) Urine Nitrite Negative (NEG) Urine Bilirubin Small (NEG) Urine Urobilinogen Dipstick 2.0 mg/dL (0.2 mg/dL) Urine Leukocyte Esterase Negative (NEG) Urine RBC 0 /HPF (0-2) Urine WBC Occ /HPF (0-4) Urine Squamous Epithelial Cells Occ /LPF Urine Bacteria 0 /HPF (0-FEW) Urine Hyaline Casts Few /HPF Urine Mucus Marked /LPF Urine Opiates Screen Neg (NEG) Urine Methadone Screen Neg (NEG) Urine Barbiturates Neg (NEG) Urine Phencyclidine Screen Neg (NEG) Urine Amphetamine/Methamphetamine Neg (NEG) Urine Benzodiazepines Screen Neg (NEG) Urine Cocaine Screen Neg (NEG) Urine Cannabinoids Screen Neg (NEG) Urine Ethyl Alcohol Pos (NEG) Laboratory Tests Test 01/16/19 22:07 01/16/19 22:15 01/16/19 22:55 Glucose (Fingerstick) 142 mg/dL (70-99) White Blood Count 10.4 x10^3/uL (4.0-11.0) Red Blood Count 4.32 x10^6/uL (4.30-5.70) Hemoglobin 14.8 g/dL (13.0-17.5) Hematocrit 43.2 % (39.0-53.0) Mean Corpuscular Volume 100 fL (79-100) Mean Corpuscular Hemoglobin 34 pg (25-35) Mean Corpuscular Hemoglobin Concent 34 g/dL (31-37) Red Cell Distribution Width 14.0 % (11.5-14.5) Platelet Count 196 x10^3/uL (140-400) Neutrophils (%) (Auto) 61 % (31-73) Lymphocytes (%) (Auto) 28 % (24-48) Monocytes (%) (Auto) 7 % (0-9) Eosinophils (%) (Auto) 4 % (0-3) Basophils (%) (Auto) 1 % (0-3) Neutrophils # (Auto) 6.3 x10^3uL (1.8-7.7) Lymphocytes # (Auto) 2.9 x10^3/uL (1.0-4.8) Monocytes # (Auto) 0.7 x10^3/uL (0.0-1.1) Eosinophils # (Auto) 0.5 x10^3/uL (0.0-0.7) Basophils # (Auto) 0.1 x10^3/uL (0.0-0.2) Sodium Level 144 mmol/L (136-145) Potassium Level 3.2 mmol/L (3.5-5.1) Chloride Level 104 mmol/L (98-107) Carbon Dioxide Level 29 mmol/L (21-32) Anion Gap 11 (6-14) Blood Urea Nitrogen 8 mg/dL (8-26) Creatinine 0.5 mg/dL (0.7-1.3) Estimated GFR (Cockcroft-Gault) 172.6 BUN/Creatinine Ratio 16 (6-20) Glucose Level 143 mg/dL (70-99) Calcium Level 8.8 mg/dL (8.5-10.1) Magnesium Level 1.6 mg/dL (1.8-2.4) Total Bilirubin 0.4 mg/dL (0.2-1.0) Aspartate Amino Transf (AST/SGOT) 162 U/L (15-37) Alanine Aminotransferase (ALT/SGPT) 109 U/L (16-63) Alkaline Phosphatase 85 U/L (46-116) Total Protein 7.2 g/dL (6.4-8.2) Albumin 3.2 g/dL (3.4-5.0) Albumin/Globulin Ratio 0.8 (1.0-1.7) Thyroid Stimulating Hormone (TSH) 0.497 uIU/mL (0.358-3.74) Ethyl Alcohol Level 269 mg/dL (0-10) Urine Collection Type Unknown Urine Color Heena Urine Clarity Cloudy Urine pH 6.0 Urine Specific [place] 1.020 Urine Protein Negative mg/dL (NEG-TRACE) Urine Glucose (UA) Negative mg/dL (NEG) Urine Ketones (Stick) Trace mg/dL (NEG) Urine Blood Negative (NEG) Urine Nitrite Negative (NEG) Urine Bilirubin Small (NEG) Urine Urobilinogen Dipstick 2.0 mg/dL (0.2 mg/dL) Urine Leukocyte Esterase Negative (NEG) Urine RBC 0 /HPF (0-2) Urine WBC Occ /HPF (0-4) Urine Squamous Epithelial Cells Occ /LPF Urine Bacteria 0 /HPF (0-FEW) Urine Hyaline Casts Few /HPF Urine Mucus Marked /LPF Urine Opiates Screen Neg (NEG) Urine Methadone Screen Neg (NEG) Urine Barbiturates Neg (NEG) Urine Phencyclidine Screen Neg (NEG) Urine Amphetamine/Methamphetamine Neg (NEG) Urine Benzodiazepines Screen Neg (NEG) Urine Cocaine Screen Neg (NEG) Urine Cannabinoids Screen Neg (NEG) Urine Ethyl Alcohol Pos (NEG) Images Images CT Head W/O Contrast: History: trauma, AMS Comparison: none Axial images were obtained without contrast. The yoder and white matter appears normal and symmetrical for the patients age. There is no mass effect, extraaxial fluid collections or hydrocephalus. There is no gross bleed. There is no focal loss of yoedr-white matter distinction to suggest acute ischemia, i.e. stroke. Impression: No acute findings. End impression CT C-Spine without contrast: Clinical History: trauma, AMS Technique: Axial helical images of the cervical spine were obtained without contrast, axial coronal and sagittal reconstruction was performed. Findings: There is no loss of vertebral body stature. There is no prevertebral soft tissue swelling. There is degenerative dextroconvex curvature of the C-spine. The vertebral bodies are well aligned in the sagittal plane. The C1-C2 relationship is normal. The visualized osseous structures appear normal. Evaluation of the central canal is limited without contrast. There is multiple posterior disc bulges resulting in flattening of the thecal sac. There does not appear to be gross flattening of the cervical cord. There is moderate narrowing of multiple neuroforamen. Impression: No acute findings. Clinical correlation suggested. PQRS Compliance Statement: One or more of the following individualized dose reduction techniques were utilized for this examination: 1. Automated exposure control 2. Adjustment of the mA and/or kV according to patient size 3. Use of iterative reconstruction technique Electronically signed by: Pratibha Urbano III, MD (01/16/2019 10:02 PM) [id number] DICTATED and SIGNED BY: PRATIBHA URBANO III, MD DATE: 01/16/192201 VTE Prophylaxis Ordered VTE Prophylaxis Devices: No VTE Pharmacological Prophylaxi: No Assessment/Plan Assessment/Plan VTE Prophylaxis Ordered VTE Prophylaxis Devices: Yes VTE Pharmacological Prophylaxi: No Assessment/Plan Heavy severe alcohol abuse - Banana bag, CIWA, HTN - cont home meds Hepatitis C - states he has severe cirrhosis. lactulose for BMs Hypokalemia - 3.1, replace IV x2 and PO Hypomagnesemia - 2g iv to replace The vertebral bodies are well aligned in the sagittal plane. The C1-C2 relationship is normal. The visualized osseous structures appear normal. Evaluation of the central canal is limited without contrast. There is multiple posterior disc bulges resulting in flattening plan iv keppra 1gm bid seizure precautions banana bag alcohol withdrawal precautions neurology consult bmp and mg today gi and dvt prophylaxis 76 min pt exam, chart review, > 50% of time with exam, chart review, pt care coordination high risk patient for sudden due to uncontrolled seizures, head trauma, noncompliance with meds, continued alcohol abuse per my chart review CT Head W/O Contrast: History: trauma, AMS Comparison: none Axial images were obtained without contrast. The yoder and white matter appears normal and symmetrical for the patients age. There is no mass effect, extraaxial fluid collections or hydrocephalus. There is no gross bleed. There is no focal loss of yoder-white matter distinction to suggest acute ischemia, i.e. stroke. Impression: No acute findings. MIGDALIA HOLLIS MD Jan 17, 2019 09:05
[2019-01-17] MEDS ORDERED: diphenhydrAMINE 50 MG/ML VIAL IVP PRN (09:15)
[2019-01-17] MEDS ORDERED: cloNIDine HCL 0.1 MG TABLET PO PRN (09:15)
[2019-01-17] MEDS ORDERED: LORazepam 1 MG TABLET PO PRN ×2 (09:15)
[2019-01-17] MEDS ORDERED: HALOPERIDOL LACTATE 5 MG/ML VIAL. IVP PRN (09:15)
[2019-01-17] MEDS ORDERED: chlordiazePOXIDE HCL 25 MG CAPSULE PO PRN ×3 (09:30→12:15)
[2019-01-17] MEDS ORDERED: MAGNESIUM SULFATE 1GM 100 ML IV ONE ×2 (10:30)
[2019-01-17 11:00] VITALS: BP 110/63
[2019-01-17 11:05] LABS: ALBUMIN 2.7 g/dL (3.4-5.0); ALBUMIN/GLOBULIN RATIO 0.8 (1.0-1.7); CALCIUM 8.1 mg/dL (8.5-10.1); CREATININE 0.5 mg/dL (0.7-1.3); GFR 172.6; MAGNESIUM 1.6 mg/dL (1.8-2.4); POTASSIUM 3.4 mmol/L (3.5-5.1); TOTAL BILIRUBIN 0.5 mg/dL (0.2-1.0)
[2019-01-17] MEDS: FAMOTIDINE 20 MG/2 ML VIAL IVP SCH ×2 (11:07→21:45)
[2019-01-17] MEDS: FOLIC ACID 1 MG TABLET. PO SCH (11:08)
[2019-01-17] MEDS: levETIRAcetam 1,000 MG in IV DEXTROSE 5% 100ML 100 ML IV SCH ×2 (11:08→21:45)
[2019-01-17] MEDS: MULTIVITAMIN with MINERAL TABLET. PO SCH (11:08)
[2019-01-17] MEDS: ENOXAPARIN 40 MG/0.4 ML SYRINGE. SQ SCH (11:09)
[2019-01-17] MEDS: PANTOPRAZOLE 40 MG TABLET.DR. PO SCH (11:13)
[2019-01-17] MEDS ORDERED: NICOTINE 21MG PATCH. TD PRN (12:15)
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
[2019-01-17 15:00] VITALS: BP 113/63
[2019-01-17 19:50] VITALS: BP 120/67
[2019-01-17] MEDS ORDERED: traMADol 50 MG TABLET PO PRN (20:30)
[2019-01-17 23:12] VITALS: BP 114/73
[2019-01-18 03:25] VITALS: BP 108/71
[2019-01-18 07:30] VITALS: BP 111/59
[2019-01-18] MEDS: MULTIVITAMIN with MINERAL TABLET. PO SCH (08:06)
[2019-01-18] MEDS: PANTOPRAZOLE 40 MG TABLET.DR. PO SCH (08:06)
[2019-01-18] MEDS: FOLIC ACID 1 MG TABLET. PO SCH (08:07)
[2019-01-18] MEDS: FAMOTIDINE 20 MG/2 ML VIAL IVP SCH (08:07)
[2019-01-18] MEDS ORDERED: MULTIVITAMIN with MINERAL TABLET. PO SCH (09:00)
[2019-01-18 09:06] LABS: BASO % 1 % (0-3); EOS # 0.4 x10^3/uL (0.0-0.7); EOS % 6 % (0-3); HEMATOCRIT 40.4 % (39.0-53.0); HEMOGLOBIN 13.5 g/dL (13.0-17.5); LYMPH # 1.8 x10^3/uL (1.0-4.8); LYMPH % 29 % (24-48); MEAN CORPUSCULAR HEMOGLOBIN 34 pg (25-35); MEAN CORPUSCULAR HGB CONC 34 g/dL (31-37); MEAN CORPUSCULAR VOLUME 101 fL (79-100); MONO # 0.6 x10^3/uL (0.0-1.1); MONO % 9 % (0-9); NEUT # 3.6 x10^3uL (1.8-7.7); NEUT % 56 % (31-73); PLATELET COUNT 152 x10^3/uL (140-400); RED BLOOD COUNT 3.98 x10^6/uL (4.30-5.70); RED CELL DISTRIBUTION WIDTH 14.1 % (11.5-14.5); WHITE BLOOD COUNT 6.4 x10^3/uL (4.0-11.0)
[2019-01-18] MEDS: levETIRAcetam 1,000 MG in IV DEXTROSE 5% 100ML 100 ML IV SCH (09:27)
[2019-01-18] MEDS: ENOXAPARIN 40 MG/0.4 ML SYRINGE. SQ SCH (09:28)
[2019-01-18 09:55] LABS: ALBUMIN 2.6 g/dL (3.4-5.0); ALBUMIN/GLOBULIN RATIO 0.7 (1.0-1.7); CALCIUM 8.2 mg/dL (8.5-10.1); CREATININE 0.6 mg/dL (0.7-1.3); GFR 139.9; POTASSIUM 3.2 mmol/L (3.5-5.1); TOTAL BILIRUBIN 0.7 mg/dL (0.2-1.0); TOTAL PROTEIN 6.1 g/dL (6.4-8.2)
[2019-01-18] MEDS ORDERED: POTASSIUM CHLORIDE 20 MEQ TABLET.ER. PO ONE (12:00)
[2019-01-18] MEDS ORDERED: LEVE500T6 PO (12:17)
--- NOTE | 2019-01-18 12:35 | NUR ---
Patient recommended a walker by PT. Patient stated walker is more of a burden than it helps. He is refusing to accept walker at this time. 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
--- NOTE | 2019-01-18 12:43 | RAD ---
Ultrasound of the abdomen without comparison for transaminitis. Technique an findings: Real-time grayscale and color Doppler migration of the abdominal organs is performed. Pancreatic head is normal. Pancreas body and tail are largely obscured. IVC is patent. Proximal aorta is nonaneurysmal. Mid and distal aorta are obscured by overlying bowel gas. The left lower liver has a nodular contour consistent with cirrhosis. The liver measures 17.3 cm. Within the right lobe the liver near the dome, there is a 5.1 cm x 5.2 cm x 4.4 cm masslike lesion which is hyperechoic centrally, with an irregular hypoechoic margin. Portal vein is patent. Gallbladder is fluid distended and notable for small echogenic foci within the gallbladder neck, likely due to small nonshadowing gallstones. No sonographic Rocha sign. No gallbladder wall thickening or pericholecystic fluid. Common bile duct is normal, measuring 4.3 mm. Both kidneys are normal in appearance with no hydronephrosis or focal parenchymal abnormality, and normal color flow. Spleen is normal in appearance as well. There is no ascites. IMPRESSION: 1. 5.2 cm predominately hyperechoic right liver mass. Though this could represent a large hemangioma, there is an irregular hypoechoic margin, which raises concern for primary metastatic neoplasm. Further evaluation with three-phase CT of the abdomen and pelvis is recommended. 2. Small probable nonshadowing stones within the gallbladder neck. No evidence of acute cholecystitis. 3. Mild hepatomegaly with irregular contour involving the left lobe of the liver. This may be physiologic but could also signify cirrhosis. Electronically signed by: Teo Ga MD (01/18/2019 12:40 PM) [id number]
--- NOTE | 2019-01-18 13:00 | NUR ---
SW consulted for dc needs. Chart reviewed and DW RN. Pt is known to SW from previous admission. Pt stated he already has all the resources he needs from previous admission. RN to arrange transportation.
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
--- NOTE | 2019-01-18 14:07 | NUR ---
Discharge Note: CRYSTAL SEVILLA [address] Discharge instructions and discharge home medications reviewed with Patient and a copy given. All questions have been answered and understanding verbalized. The following instructions and handouts were given: Discharge Instructions, Prescriptions Discontinued lines and drains: Peripheral IV removed, Catheter tip intact. Patient discharged to Home with via Facility Transport
== END 2019-01-18 13:56 | disposition home or self-care (01) | DRG 100 ==
LOC: ER 21:16 → 6 SOUTH 01-17 00:20
PROVIDERS: ADMIT Internal Medicine; ATTEND Internal Medicine
DX: R56.9 Unspecified convulsions (principal); G92 Toxic encephalopathy; K74.60 Unspecified cirrhosis of liver; I10 Essential (primary) hypertension; E87.6 Hypokalemia; E83.42 Hypomagnesemia; F17.210 Nicotine dependence, cigarettes, uncomplicated; G89.29 Other chronic pain; M19.90 Unspecified osteoarthritis, unspecified site; F10.229 Alcohol dependence with intoxication, unspecified; Z79.899 Other long term (current) drug therapy; Z82.49 Family history of ischemic heart disease and other diseases of the circulatory system; Z88.0 Allergy status to penicillin; Z88.8 Allergy status to other drugs, medicaments and biological substances; Y90.8 Blood alcohol level of 240 mg/100 ml or more; Z86.19 Personal history of other infectious and parasitic diseases
CPT/HCPCS: 36415; 70450; 71045; 72125; 76700; 80053; 80307; 81001; 82962; 83735; 84146; 84443; 85025; 94640; 94760; 96365; 96366; 96367; 96375; G0480; J0456; J0696; J1650; J1953; J3475; J3490; J7030; J7620; 99285-25

== ENCOUNTER 2019-02-20 00:10 | Emergency (ER) | payer MEDICAID ==
[~2019-02-20] VITALS: Ht 177.8 cm; Wt 64.4 kg
[~2019-02-20 00:10] MED LIST changes: +BUSP10TA PO
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
[2019-02-20 03:16] LABS: BASO # 0.1 x10^3/uL (0.0-0.2); BASO % 1 % (0-3); EOS # 0.5 x10^3/uL (0.0-0.7); EOS % 8 % (0-3); HEMATOCRIT 48.4 % (39.0-53.0); HEMOGLOBIN 16.3 g/dL (13.0-17.5); LYMPH # 2.6 x10^3/uL (1.0-4.8); LYMPH % 39 % (24-48); MEAN CORPUSCULAR HEMOGLOBIN 35 pg (25-35); MEAN CORPUSCULAR HGB CONC 34 g/dL (31-37); MEAN CORPUSCULAR VOLUME 104 fL (79-100); MONO # 0.7 x10^3/uL (0.0-1.1); MONO % 10 % (0-9); NEUT # 2.8 x10^3uL (1.8-7.7); NEUT % 43 % (31-73); PLATELET COUNT 209 x10^3/uL (140-400); RED BLOOD COUNT 4.65 x10^6/uL (4.30-5.70); RED CELL DISTRIBUTION WIDTH 15.9 % (11.5-14.5); WHITE BLOOD COUNT 6.7 x10^3/uL (4.0-11.0)
[2019-02-20 03:31] LABS: CALCIUM 8.8 mg/dL (8.5-10.1); CREATININE 0.6 mg/dL (0.7-1.3); GFR 139.9; POTASSIUM 3.3 mmol/L (3.5-5.1)
[2019-02-20 03:39] LABS: ALBUMIN 3.6 g/dL (3.4-5.0); ALBUMIN/GLOBULIN RATIO 0.9 (1.0-1.7); TOTAL BILIRUBIN 0.5 mg/dL (0.2-1.0); TOTAL PROTEIN 7.7 g/dL (6.4-8.2)
[2019-02-20 07:53] VITALS: BP 120/60
== END 2019-02-20 08:04 | disposition home or self-care (01) ==
LOC: ER 00:10
DX: F10.229 Alcohol dependence with intoxication, unspecified (principal); Y90.8 Blood alcohol level of 240 mg/100 ml or more; I10 Essential (primary) hypertension; G89.29 Other chronic pain; Z87.820 Personal history of traumatic brain injury; Z88.0 Allergy status to penicillin; Z88.1 Allergy status to other antibiotic agents; Z88.2 Allergy status to sulfonamides; Z88.8 Allergy status to other drugs, medicaments and biological substances
CPT/HCPCS: 36415; 80053; 85025; 99284; G0480